=== PATIENT | male | born 1935 | race Caucasian/White ===

== ENCOUNTER 2017-05-18 13:37 | Emergency (ER) | payer MEDICARE ==
[~2017-05-18] VITALS: Ht 188 cm; Wt 117.0 kg
[~2017-05-18 13:37] MED LIST: AMIT25 PO; AMLO10 PO; ASPI325 PO; ASPI81EC PO; CEPH500 PO; Colace100 MG PO; ESOM20; FURO20 PO; GABA600 PO; HYDACE10B PO; HYDR-86 PO; LIDO5TP TD; METO50 PO; METO50ER PO; Micro-K10 MEQ PO; OLME20 PO; OMEP20ER PO; SERT100 PO
[2017-05-18 14:11] LABS: BASOPHILS ABSOLUTE AUTO 0.08 K/mm3 (0.00-0.23); BASOPHILS PERCENT AUTO 1 % (0-2); EOSINOPHILS ABSOLUTE AUTO 0.16 K/mm3 (0.00-0.68); EOSINOPHILS PERCENT AUTO 2 % (0-6); Hematocrit 42.8 % (37.0-53.0); Hemoglobin 13.8 g/dL (13.5-17.5); IMMATURE GRAN ABSOLUTE AUTO 0.03 K/mm3 (0.00-0.10); IMMATURE GRAN PERCENT AUTO 0 % (0-1); LYMPHOCYTES ABSOLUTE AUTO 1.35 K/mm3 (0.84-5.20); LYMPHOCYTES PERCENT AUTO 18 % (21-46); MONOCYTES ABSOLUTE AUTO 0.69 K/mm3 (0.16-1.47); MONOCYTES PERCENT AUTO 9 % (4-13); Mean Corpuscular HGB 29.6 pg (26.0-34.0); Mean Corpuscular HGB Conc 32.2 g/dL (31.5-36.5); Mean Corpuscular Volume 92 fL (80-100); Mean Platelet Volume 8.7 fL (9.1-12.4); NEUTROPHILS ABSOLUTE AUTO 5.19 K/mm3 (1.96-9.15); NEUTROPHILS PERCENT AUTO 69 % (41-73); Platelet Count 355 K/mm3 (150-400); RDW Standard Deviation 43.8 fL (35.1-46.3); Red Blood Cell Count 4.67 M/mm3 (4.30-5.90)
[2017-05-18 14:33] LABS: Alanine Aminotransfer (ALT/SGP 18 U/L (12-78); Albumin, Blood 3.3 g/dL (3.4-5.0); Albumin/Globulin Ratio 0.8 (0.8-1.8); Alk Phos 120 U/L (50-136); Anion Gap 7 mmol/L (6-16); Aspartate Aminotrans (AST/SGOT 12 U/L (12-37); Bilirubin, Total 0.6 mg/dL (0.1-1.0); Blood Urea Nitrogen 12 mg/dL (8-24); Bun/Creatinine Ratio 13.6 (12.0-20.0); CO2, Blood 28 mmol/L (21-32); Calcium, Blood 8.4 mg/dL (8.5-10.1); Chloride, Blood 105 mmol/L (98-108); Creatinine, Blood 0.88 mg/dL (0.60-1.20); Globulin, Blood 4.4 g/dL (2.2-4.0); Glomerular Filtration Rate >60 (60-); Glucose, Blood 126 mg/dL (70-99); Potassium, Blood 3.5 mmol/L (3.5-5.5); Sodium, Blood 140 mmol/L (136-145); Total Protein, Blood 7.7 g/dL (6.4-8.2)
[2017-05-18] MEDS ORDERED: CEPH500 PO (18:25)
== END 2017-05-18 18:58 | disposition home or self-care (01) ==
LOC: ER 13:37
PROVIDERS: Physician Assistant
DX: S82.65XA Nondisplaced fracture of lateral malleolus of left fibula, initial encounter for closed fracture (principal); L03.116 Cellulitis of left lower limb; I10 Essential (primary) hypertension; Z79.899 Other long term (current) drug therapy; Z79.82 Long term (current) use of aspirin; Z87.891 Personal history of nicotine dependence; W54.1XXA Struck by dog, initial encounter
CPT/HCPCS: 29515; 36415; 73610; 80053; 85025; 93971; 99284

== ENCOUNTER 2017-07-20 17:12 | Emergency (ER) | payer MEDICARE ==
[~2017-07-20] VITALS: Ht 190.5 cm; Wt 113.4 kg
[2017-07-20 17:24] LABS: BASOPHILS ABSOLUTE AUTO 0.07 K/mm3 (0.00-0.23); BASOPHILS PERCENT AUTO 1 % (0-2); EOSINOPHILS PERCENT AUTO 3 % (0-6); Hematocrit 45.1 % (37.0-53.0); Hemoglobin 14.5 g/dL (13.5-17.5); IMMATURE GRAN ABSOLUTE AUTO 0.03 K/mm3 (0.00-0.10); IMMATURE GRAN PERCENT AUTO 0 % (0-1); LYMPHOCYTES ABSOLUTE AUTO 1.46 K/mm3 (0.84-5.20); LYMPHOCYTES PERCENT AUTO 21 % (21-46); MONOCYTES PERCENT AUTO 9 % (4-13); Mean Corpuscular HGB 28.3 pg (26.0-34.0); Mean Corpuscular HGB Conc 32.2 g/dL (31.5-36.5); Mean Corpuscular Volume 88 fL (80-100); Mean Platelet Volume 8.9 fL (9.1-12.4); NEUTROPHILS ABSOLUTE AUTO 4.57 K/mm3 (1.96-9.15); NEUTROPHILS PERCENT AUTO 66 % (41-73); Platelet Count 282 K/mm3 (150-400); RDW Coefficient Variation 13.3 % (11.7-14.2); RDW Standard Deviation 43.3 fL (35.1-46.3); Red Blood Cell Count 5.12 M/mm3 (4.30-5.90); White Blood Cell Count 6.93 K/mm3 (4.00-11.30)
[2017-07-20 17:36] LABS: International Normalized Ratio 1.06
[2017-07-20 17:43] LABS: Alanine Aminotransfer (ALT/SGP 21 U/L (12-78); Albumin, Blood 3.5 g/dL (3.4-5.0); Albumin/Globulin Ratio 0.8 (0.8-1.8); Alk Phos 119 U/L (50-136); Anion Gap 6 mmol/L (6-16); Aspartate Aminotrans (AST/SGOT 14 U/L (12-37); Bilirubin, Total 0.5 mg/dL (0.1-1.0); Blood Urea Nitrogen 12 mg/dL (8-24); Bun/Creatinine Ratio 10.9 (12.0-20.0); CO2, Blood 28 mmol/L (21-32); Calcium, Blood 8.6 mg/dL (8.5-10.1); Chloride, Blood 105 mmol/L (98-108); Ethanol (Alcohol), Blood, Med 5 mg/dL; Globulin, Blood 4.2 g/dL (2.2-4.0); Glomerular Filtration Rate >60 (60-); Glucose, Blood 131 mg/dL (70-99); Potassium, Blood 3.5 mmol/L (3.5-5.5); Sodium, Blood 139 mmol/L (136-145); Total Protein, Blood 7.7 g/dL (6.4-8.2)
[2017-07-20 17:48] LABS: Source, Urine Clean Catch
[2017-07-20 17:51] LABS: Bilirubin, Urine Neg (Neg); Blood, Urine 1+ (Neg); Glucose Qualitative, Urine Neg (Neg); Ketones, Urine Neg (Neg); Leukocyte Esterase, Urine Neg (Neg); Nitrite, Urine Neg (Neg); Protein, Urine 2+ (Neg); Urobilinogen, Urine NORM (Normal)
[2017-07-20 17:59] LABS: Appearance, Urine Clear (Clear); Color, Urine Yellow (P-Yellow)
[2017-07-20 18:00] LABS: White Blood Cells, Urine 0-2 /hpf (0-5)
[2017-07-20 18:01] LABS: Bacteria Few /hpf; Squamous Epithelial Cells Not Seen /hpf (Few)
[2017-07-20 18:02] LABS: U Amphetamine Screen Not Detected; U Barbituate Screen Not Detected; U Benzodiazapine Screen Not Detected; U Buprenorphine Screen Not Detected; U Cannabinoids Screen Not Detected; U Cocaine Screen Not Detected; U Methadone Screen Not Detected; U Methamphetamine Screen Not Detected; U Opiates Screen Not Detected; U Oxycodone Screen Not Detected; U Phencyclidine Screen Not Detected; U Propoxyphene Screen Not Detected
[2017-07-20] MEDS ORDERED: SIMV10 PO (18:16)
[2017-07-20] MEDS ORDERED: DOXY100 (18:18)
[2017-07-20] MEDS ORDERED: AMIT10 PO (18:18)
== END 2017-07-20 22:16 ==
LOC: ER 17:12
PROVIDERS: Emergency Medicine
DX: I65.22 Occlusion and stenosis of left carotid artery (principal); R47.01 Aphasia; I10 Essential (primary) hypertension; Z79.899 Other long term (current) drug therapy; Z79.82 Long term (current) use of aspirin; Z87.891 Personal history of nicotine dependence
CPT/HCPCS: 70450; 70496; 70498; 71046; 80053; 81001; 85025; 85610; 85730; 93005; 93010; 96365; 99285; G0480; J1644; Q9967

== ENCOUNTER 2020-09-09 08:01 | Inpatient (IN) | payer MEDICARE ==
[~2020-09-09] VITALS: Ht 185.4 cm; Wt 111.5 kg
[~2020-09-09 08:01] MED LIST changes: -ASPI325 PO; +DOXY100; -FURO20 PO; -GABA600 PO; -METO50ER PO; -Micro-K10 MEQ PO; -SERT100 PO
[2020-09-09 08:31] LABS: BASOPHILS ABSOLUTE AUTO 0.08 K/mm3 (0.00-0.23); BASOPHILS PERCENT AUTO 1 % (0-2); EOSINOPHILS ABSOLUTE AUTO 0.15 K/mm3 (0.00-0.68); EOSINOPHILS PERCENT AUTO 2 % (0-6); Hematocrit 30.9 % (37.0-53.0); Hemoglobin 9.2 g/dL (13.5-17.5); IMMATURE GRAN ABSOLUTE AUTO 0.03 K/mm3 (0.00-0.10); IMMATURE GRAN PERCENT AUTO 0 % (0-1); LYMPHOCYTES ABSOLUTE AUTO 1.08 K/mm3 (0.84-5.20); LYMPHOCYTES PERCENT AUTO 16 % (21-46); MONOCYTES ABSOLUTE AUTO 0.76 K/mm3 (0.16-1.47); MONOCYTES PERCENT AUTO 11 % (4-13); Mean Corpuscular HGB 24.1 pg (26.0-34.0); Mean Corpuscular HGB Conc 29.8 g/dL (31.5-36.5); Mean Corpuscular Volume 81 fL (80-100); Mean Platelet Volume 8.9 fL (9.1-12.4); NEUTROPHILS ABSOLUTE AUTO 4.85 K/mm3 (1.96-9.15); NEUTROPHILS PERCENT AUTO 70 % (41-73); Platelet Count 290 K/mm3 (150-400); RDW Coefficient Variation 16.7 % (11.7-14.2); RDW Standard Deviation 48.1 fL (35.1-46.3); Red Blood Cell Count 3.82 M/mm3 (4.30-5.90); White Blood Cell Count 6.95 K/mm3 (4.00-11.30)
[2020-09-09 08:59] LABS: Alanine Aminotransfer (ALT/SGP 20 U/L (12-78); Albumin, Blood 2.7 g/dL (3.4-5.0); Albumin/Globulin Ratio 0.8 (0.8-1.8); Alk Phos 87 U/L (50-136); Anion Gap 5 mmol/L (6-16); Aspartate Aminotrans (AST/SGOT 21 U/L (12-37); Blood Urea Nitrogen 17 mg/dL (8-24); Bun/Creatinine Ratio 13.6 (12.0-20.0); CO2, Blood 25 mmol/L (21-32); Chloride, Blood 110 mmol/L (98-108); Creatinine, Blood 1.25 mg/dL (0.60-1.20); Globulin, Blood 3.3 g/dL (2.2-4.0); Glomerular Filtration Rate 58 (60-); Glucose, Blood 88 mg/dL (70-99); Potassium, Blood 3.7 mmol/L (3.5-5.5); Sodium, Blood 140 mmol/L (136-145); Troponin I <0.015 ng/mL (0.000-0.040)
[2020-09-09 09:21] LABS: Source, Urine Clean Catch
[2020-09-09 09:42] LABS: Appearance, Urine Clear (Clear); Bilirubin, Urine Neg (Neg); Blood, Urine Neg (Neg); Color, Urine Yellow (P-Yellow); Glucose Qualitative, Urine Neg (Neg); Ketones, Urine Neg (Neg); Leukocyte Esterase, Urine Neg (Neg); Nitrite, Urine Neg (Neg); Protein, Urine 1+ (Neg); Specific Gravity, Urine 1.015 (1.003-1.022); Urobilinogen, Urine 1+ (Normal)
[2020-09-09 11:24] LABS: Percent Saturation 6.6 % (20.0-50.0)
[2020-09-09] MEDS ORDERED: Micro-K10 MEQ PO (13:56)
[2020-09-09] MEDS ORDERED: FURO20 PO (13:56)
[2020-09-09] MEDS ORDERED: AMLODIPINE BESY10 MG PO (13:56)
[2020-09-09] MEDS ORDERED: FLUTICASONE-SA1 EAC9 INH (13:58)
[2020-09-09] MEDS ORDERED: METO50 PO (13:59)
[2020-09-09] MEDS ORDERED: GABA600 PO (13:59)
[2020-09-09] MEDS ORDERED: SERT100 PO (13:59)
[2020-09-09] MEDS ORDERED: SIMV10 PO (14:00)
[2020-09-09] MEDS ORDERED: PANTOPRAZOLE SO40 M2 PO (14:00)
[2020-09-09] MEDS ORDERED: ASPI325 PO (14:01)
[2020-09-09] MEDS ORDERED: Amitriptyline H10 MG PO (14:01)
--- NOTE | 2020-09-09 16:15 | NUR ---
SBAR REPORT FROM NISSA MCGEE RN
[2020-09-10 05:13] LABS: BASOPHILS ABSOLUTE AUTO 0.07 K/mm3 (0.00-0.23); BASOPHILS PERCENT AUTO 1 % (0-2); EOSINOPHILS ABSOLUTE AUTO 0.31 K/mm3 (0.00-0.68); EOSINOPHILS PERCENT AUTO 5 % (0-6); Hematocrit 33.2 % (37.0-53.0); IMMATURE GRAN ABSOLUTE AUTO 0.03 K/mm3 (0.00-0.10); IMMATURE GRAN PERCENT AUTO 0 % (0-1); LYMPHOCYTES PERCENT AUTO 16 % (21-46); MONOCYTES ABSOLUTE AUTO 0.71 K/mm3 (0.16-1.47); MONOCYTES PERCENT AUTO 11 % (4-13); Mean Corpuscular HGB 24.2 pg (26.0-34.0); Mean Corpuscular HGB Conc 30.1 g/dL (31.5-36.5); Mean Corpuscular Volume 80 fL (80-100); Mean Platelet Volume 9.3 fL (9.1-12.4); NEUTROPHILS ABSOLUTE AUTO 4.49 K/mm3 (1.96-9.15); NEUTROPHILS PERCENT AUTO 67 % (41-73); Platelet Count 311 K/mm3 (150-400); RDW Coefficient Variation 16.6 % (11.7-14.2); RDW Standard Deviation 47.1 fL (35.1-46.3); Red Blood Cell Count 4.14 M/mm3 (4.30-5.90); White Blood Cell Count 6.71 K/mm3 (4.00-11.30)
[2020-09-10 05:30] LABS: Alanine Aminotransfer (ALT/SGP 19 U/L (12-78); Albumin, Blood 2.7 g/dL (3.4-5.0); Albumin/Globulin Ratio 0.8 (0.8-1.8); Alk Phos 90 U/L (50-136); Anion Gap 6 mmol/L (6-16); Aspartate Aminotrans (AST/SGOT 20 U/L (12-37); Bilirubin, Total 1.6 mg/dL (0.1-1.0); Blood Urea Nitrogen 14 mg/dL (8-24); Bun/Creatinine Ratio 13.3 (12.0-20.0); CO2, Blood 29 mmol/L (21-32); Calcium, Blood 7.9 mg/dL (8.5-10.1); Chloride, Blood 103 mmol/L (98-108); Creatinine, Blood 1.05 mg/dL (0.60-1.20); Globulin, Blood 3.4 g/dL (2.2-4.0); Glomerular Filtration Rate >60 (60-); Glucose, Blood 82 mg/dL (70-99); Potassium, Blood 3.2 mmol/L (3.5-5.5); Sodium, Blood 138 mmol/L (136-145); Total Protein, Blood 6.1 g/dL (6.4-8.2)
[2020-09-10 13:09] LABS: Stool Occult Blood Guaiac 1 Neg (Neg)
[2020-09-10 15:45] LABS: Anion Gap 4 mmol/L (6-16); Blood Urea Nitrogen 14 mg/dL (8-24); Bun/Creatinine Ratio 12.6 (12.0-20.0); CO2, Blood 31 mmol/L (21-32); Calcium, Blood 8.3 mg/dL (8.5-10.1); Chloride, Blood 102 mmol/L (98-108); Creatinine, Blood 1.11 mg/dL (0.60-1.20); Glomerular Filtration Rate >60 (60-); Glucose, Blood 102 mg/dL (70-99); Potassium, Blood 3.9 mmol/L (3.5-5.5); Sodium, Blood 137 mmol/L (136-145)
--- NOTE | 2020-09-10 19:35 | NUR ---
DR called for BD protocol. PT has diskus at bedside discussed it with RT to obtain RX for PT while hospitalized & not use his own diskus here. Called hospitalist ROBERTO to ask for BD protocol. Reminded PT not to use own meds while here. order obtained. Weaned to room air & set up on pulse ox & bipap hospitals for [facility].
--- NOTE | 2020-09-11 05:39 | NUR ---
Gege elderly MAle lives alone, has new dx CHF PT in tele monitor afib or sr with PAC recieved BID IV lasix with large amts clear straw urine out. Gege with mild memory deficits has bipap for love & bioxx desats as low as 84% but recovers with cues. Uses high salt diet & says he is unaware of cardiac problems. He says he uses asa 325 mg for anticoagulant. 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 Not impulsive gait fairly steady. Denies acute pain.
[2020-09-11 08:39] LABS: Anion Gap 4 mmol/L (6-16); Blood Urea Nitrogen 14 mg/dL (8-24); Bun/Creatinine Ratio 13.2 (12.0-20.0); CO2, Blood 32 mmol/L (21-32); Calcium, Blood 8.3 mg/dL (8.5-10.1); Chloride, Blood 100 mmol/L (98-108); Creatinine, Blood 1.06 mg/dL (0.60-1.20); Glomerular Filtration Rate >60 (60-); Glucose, Blood 88 mg/dL (70-99); Potassium, Blood 3.6 mmol/L (3.5-5.5); Sodium, Blood 136 mmol/L (136-145)
[2020-09-11] MEDS ORDERED: FERSU300 PO (14:09)
[2020-09-11] MEDS ORDERED: VITAMIN B COMP0.4 MG PO (14:10)
[2020-09-11] MEDS ORDERED: TORSE20 PO (14:11)
[2020-09-11] MEDS ORDERED: MIRALAX17 GM PO (14:11)
--- NOTE | 2020-09-11 14:45 | NUR ---
PT DISCHARGED DC INSTRUCTIONS REVIEWED WITH PT, PT VERB UNDERSTANDING OF MEDS, DC INSTRUCTIONS, DIET, ACTIVITY, AND FOLLOW UP. PERSONAL BELONGINGS WITH PATIENT. PT DCD VIA WC TO PRIVATE VEHICLE
--- NOTE | 2020-09-11 15:27 | NUR ---
PT DISCHARGED THE PT VERBALIZED UNDERSTANDING OF DC INSTRUCTIONS, [facility] THE PTS PCP WAS CALLED A MESSAGE WAS LEFT TO SCHEDULE A FOLLOW UP APPOINTMENT, THE PT WAS TRANSFERED VIA WHEELCHAIR ACCOMPANIED BY THE SPECIALTY THERAPIST, PT APPEARED TO BE BREATHING EASILY ON RA AT THIS TIME
== END 2020-09-11 14:52 | disposition home health service (06) | DRG 291 ==
LOC: ER 08:01 → ERHOLD 10:33 → MEDS 16:31
PROVIDERS: Emergency Medicine; Family Medicine; ADMIT Internal Medicine
DX: I13.0 Hypertensive heart and chronic kidney disease with heart failure and stage 1 through stage 4 chronic kidney disease, or unspecified chronic kidney disease (principal); J96.01 Acute respiratory failure with hypoxia; N17.9 Acute kidney failure, unspecified; I50.9 Heart failure, unspecified; D64.9 Anemia, unspecified; E78.5 Hyperlipidemia, unspecified; G47.33 Obstructive sleep apnea (adult) (pediatric); I27.20 Pulmonary hypertension, unspecified; N18.2 Chronic kidney disease, stage 2 (mild); F32.9 Major depressive disorder, single episode, unspecified; Z86.73 Personal history of transient ischemic attack (TIA), and cerebral infarction without residual deficits; Z79.899 Other long term (current) drug therapy; Z90.49 Acquired absence of other specified parts of digestive tract; Z98.890 Other specified postprocedural states; Z79.82 Long term (current) use of aspirin; Z87.891 Personal history of nicotine dependence
CPT/HCPCS: 36415; 71045; 80048; 80053; 82270; 82607; 82728; 82746; 83540; 83550; 83735; 83880; 84443; 84484; 85025; 93005; 93010; 93306; 94640; 94660; 94761; 94762; 96374; 97116; 97162; 97166; 97530; 97535; 99285-25; A9270; J1650; J1940

== ENCOUNTER 2021-06-21 11:02 | Emergency (ER) | payer MEDICARE ==
[~2021-06-21] VITALS: Ht 185.4 cm; Wt 90.7 kg
[~2021-06-21 11:02] MED LIST changes: +AMLODIPINE BESY10 MG PO; +ASPI325 PO; +Amitriptyline H10 MG PO; +FERSU300 PO; +FLUTICASONE-SA1 EAC9 INH; +FURO20 PO; +GABA600 PO; +MIRALAX17 GM PO; +Micro-K10 MEQ PO; +PANTOPRAZOLE SO40 M2 PO; +SERT100 PO; +SIMV10 PO; +TORSE20 PO; +VITAMIN B COMP0.4 MG PO
[2021-06-21 12:12] LABS: BASOPHILS ABSOLUTE AUTO 0.06 K/mm3 (0.00-0.23); BASOPHILS PERCENT AUTO 1 % (0-2); EOSINOPHILS ABSOLUTE AUTO 0.19 K/mm3 (0.00-0.68); EOSINOPHILS PERCENT AUTO 2 % (0-6); Hematocrit 36.9 % (37.0-53.0); Hemoglobin 11.7 g/dL (13.5-17.5); IMMATURE GRAN ABSOLUTE AUTO 0.05 K/mm3 (0.00-0.10); IMMATURE GRAN PERCENT AUTO 1 % (0-1); LYMPHOCYTES ABSOLUTE AUTO 0.87 K/mm3 (0.84-5.20); LYMPHOCYTES PERCENT AUTO 10 % (21-46); MONOCYTES ABSOLUTE AUTO 0.89 K/mm3 (0.16-1.47); MONOCYTES PERCENT AUTO 11 % (4-13); Mean Corpuscular HGB 28.3 pg (26.0-34.0); Mean Corpuscular HGB Conc 31.7 g/dL (31.5-36.5); Mean Corpuscular Volume 89 fL (80-100); Mean Platelet Volume 9.5 fL (9.1-12.4); NEUTROPHILS ABSOLUTE AUTO 6.43 K/mm3 (1.96-9.15); NEUTROPHILS PERCENT AUTO 76 % (41-73); Platelet Count 332 K/mm3 (150-400); RDW Coefficient Variation 14.6 % (11.7-14.2); RDW Standard Deviation 46.8 fL (35.1-46.3); Red Blood Cell Count 4.14 M/mm3 (4.30-5.90); White Blood Cell Count 8.49 K/mm3 (4.00-11.30)
[2021-06-21 12:30] LABS: Alanine Aminotransfer (ALT/SGP 22 U/L (12-78); Albumin, Blood 2.8 g/dL (3.4-5.0); Albumin/Globulin Ratio 0.7 (0.8-1.8); Alk Phos 101 U/L (50-136); Anion Gap 4 mmol/L (6-16); Aspartate Aminotrans (AST/SGOT 14 U/L (12-37); Bilirubin, Total 1.2 mg/dL (0.1-1.0); Blood Urea Nitrogen 18 mg/dL (8-24); Bun/Creatinine Ratio 15.8 (12.0-20.0); CO2, Blood 28 mmol/L (21-32); Calcium, Blood 8.3 mg/dL (8.5-10.1); Chloride, Blood 106 mmol/L (98-108); Creatinine, Blood 1.14 mg/dL (0.60-1.20); Globulin, Blood 3.8 g/dL (2.2-4.0); Glomerular Filtration Rate >60 (60-); Glucose, Blood 97 mg/dL (70-99); Potassium, Blood 3.5 mmol/L (3.5-5.5); Sodium, Blood 138 mmol/L (136-145); Total Protein, Blood 6.6 g/dL (6.4-8.2)
[2021-06-21 12:42] LABS: Source, Urine Clean Catch
[2021-06-21 12:51] LABS: Blood, Urine Neg (Neg); Glucose Qualitative, Urine Neg (Neg); Ketones, Urine Neg (Neg); Leukocyte Esterase, Urine 1+ (Neg); Nitrite, Urine Neg (Neg); Protein, Urine 2+ (Neg); Urobilinogen, Urine 2+ (Normal)
[2021-06-21 12:57] LABS: Bilirubin, Urine 1+ (Neg)
[2021-06-21 12:58] LABS: Appearance, Urine Hazy (Clear); Color, Urine Yellow (P-Yellow)
[2021-06-21 12:59] LABS: Bacteria Rare /hpf; Red Blood Cells, Urine 0-2 /hpf (0-2); Squamous Epithelial Cells Few /hpf (Few); White Blood Cells, Urine 0-2 /hpf (0-5)
[2021-06-21] MEDS ORDERED: OXYC5 PO (14:19)
== END 2021-06-21 14:35 | disposition home or self-care (01) ==
LOC: ER 11:02
PROVIDERS: Emergency Medicine
DX: I48.91 Unspecified atrial fibrillation (principal); M48.56XA Collapsed vertebra, not elsewhere classified, lumbar region, initial encounter for fracture; I11.0 Hypertensive heart disease with heart failure; I50.9 Heart failure, unspecified; Z87.891 Personal history of nicotine dependence
CPT/HCPCS: 36415; 71046; 72100; 80053; 81001; 83880; 84484; 85025; 87086; 93005; 93010; 99285-25; A9270

== ENCOUNTER 2021-08-24 16:32 | Inpatient (IN) | payer MEDICARE ==
[~2021-08-24] VITALS: Ht 182.9 cm; Wt 102.1 kg
[~2021-08-24 16:32] MED LIST changes: +OXYC5 PO
[2021-08-24 18:22] LABS: BASOPHILS ABSOLUTE AUTO 0.09 K/mm3 (0.00-0.23); BASOPHILS PERCENT AUTO 1 % (0-2); EOSINOPHILS ABSOLUTE AUTO 0.16 K/mm3 (0.00-0.68); EOSINOPHILS PERCENT AUTO 2 % (0-6); Hematocrit 38.7 % (37.0-53.0); IMMATURE GRAN ABSOLUTE AUTO 0.03 K/mm3 (0.00-0.10); IMMATURE GRAN PERCENT AUTO 0 % (0-1); LYMPHOCYTES ABSOLUTE AUTO 1.59 K/mm3 (0.84-5.20); LYMPHOCYTES PERCENT AUTO 18 % (21-46); MONOCYTES ABSOLUTE AUTO 0.85 K/mm3 (0.16-1.47); MONOCYTES PERCENT AUTO 10 % (4-13); Mean Corpuscular HGB 27.7 pg (26.0-34.0); Mean Corpuscular Volume 89 fL (80-100); Mean Platelet Volume 9.3 fL (9.1-12.4); NEUTROPHILS ABSOLUTE AUTO 5.99 K/mm3 (1.96-9.15); NEUTROPHILS PERCENT AUTO 69 % (41-73); Platelet Count 347 K/mm3 (150-400); RDW Coefficient Variation 16.6 % (11.7-14.2); RDW Standard Deviation 54.5 fL (35.1-46.3); Red Blood Cell Count 4.33 M/mm3 (4.30-5.90); White Blood Cell Count 8.71 K/mm3 (4.00-11.30)
[2021-08-24 18:47] LABS: Albumin, Blood 2.9 g/dL (3.4-5.0); Albumin/Globulin Ratio 0.8 (0.8-1.8); Bilirubin, Total 0.6 mg/dL (0.1-1.0); Bun/Creatinine Ratio 14.3 (12.0-20.0); Calcium, Blood 8.3 mg/dL (8.5-10.1); Creatinine, Blood 1.19 mg/dL (0.60-1.20); Globulin, Blood 3.8 g/dL (2.2-4.0); Potassium, Blood 3.5 mmol/L (3.5-5.5); Total Protein, Blood 6.7 g/dL (6.4-8.2)
[2021-08-25] MEDS ORDERED: IBU800 M1 PO (01:00)
[2021-08-25] MEDS ORDERED: Norco 5-325 Ta1 EACH PO (01:02)
[2021-08-25 02:25] LABS: BASOPHILS ABSOLUTE AUTO 0.07 K/mm3 (0.00-0.23); BASOPHILS PERCENT AUTO 1 % (0-2); EOSINOPHILS PERCENT AUTO 4 % (0-6); Hematocrit 38.9 % (37.0-53.0); Hemoglobin 12.1 g/dL (13.5-17.5); IMMATURE GRAN ABSOLUTE AUTO 0.01 K/mm3 (0.00-0.10); IMMATURE GRAN PERCENT AUTO 0 % (0-1); LYMPHOCYTES ABSOLUTE AUTO 1.77 K/mm3 (0.84-5.20); LYMPHOCYTES PERCENT AUTO 22 % (21-46); MONOCYTES ABSOLUTE AUTO 0.83 K/mm3 (0.16-1.47); MONOCYTES PERCENT AUTO 11 % (4-13); Mean Corpuscular HGB 27.4 pg (26.0-34.0); Mean Corpuscular HGB Conc 31.1 g/dL (31.5-36.5); Mean Corpuscular Volume 88 fL (80-100); NEUTROPHILS ABSOLUTE AUTO 4.95 K/mm3 (1.96-9.15); NEUTROPHILS PERCENT AUTO 62 % (41-73); Platelet Count 325 K/mm3 (150-400); RDW Coefficient Variation 16.4 % (11.7-14.2); RDW Standard Deviation 53.5 fL (35.1-46.3); Red Blood Cell Count 4.41 M/mm3 (4.30-5.90); White Blood Cell Count 7.93 K/mm3 (4.00-11.30)
[2021-08-25 02:43] LABS: Albumin, Blood 2.9 g/dL (3.4-5.0); Albumin/Globulin Ratio 0.8 (0.8-1.8); Bilirubin, Total 0.7 mg/dL (0.1-1.0); Bun/Creatinine Ratio 14.2 (12.0-20.0); Calcium, Blood 8.3 mg/dL (8.5-10.1); Creatinine, Blood 1.13 mg/dL (0.60-1.20); Globulin, Blood 3.6 g/dL (2.2-4.0); Potassium, Blood 3.2 mmol/L (3.5-5.5); Total Protein, Blood 6.5 g/dL (6.4-8.2)
[2021-08-25 02:44] LABS: CPK Creatine Kinase 44 U/L (39-308)
[2021-08-25 10:21] LABS: CPK Creatine Kinase 38 U/L (39-308)
[2021-08-26 12:53] LABS: Bun/Creatinine Ratio 12.3 (12.0-20.0); Calcium, Blood 8.1 mg/dL (8.5-10.1); Creatinine, Blood 0.98 mg/dL (0.60-1.20); Potassium, Blood 3.6 mmol/L (3.5-5.5)
[2021-08-27] MEDS ORDERED: AIRDUO RESPICL1 EAC4 INH (13:42)
== END 2021-08-27 16:05 | disposition home health service (06) | DRG 291 ==
LOC: ER 16:32 → MEDS 22:19 → ERHOLD 22:19 → MEDS 08-25 01:54
PROVIDERS: Internal Medicine; Physician Assistant; ADMIT Internal Medicine
DX: I13.0 Hypertensive heart and chronic kidney disease with heart failure and stage 1 through stage 4 chronic kidney disease, or unspecified chronic kidney disease (principal); I50.33 Acute on chronic diastolic (congestive) heart failure; I48.91 Unspecified atrial fibrillation; E78.5 Hyperlipidemia, unspecified; G47.33 Obstructive sleep apnea (adult) (pediatric); N18.30 Chronic kidney disease, stage 3 unspecified; F32.A Depression, unspecified; Z90.49 Acquired absence of other specified parts of digestive tract; Z86.73 Personal history of transient ischemic attack (TIA), and cerebral infarction without residual deficits; Z98.890 Other specified postprocedural states; Z87.891 Personal history of nicotine dependence; Z79.82 Long term (current) use of aspirin; Z79.899 Other long term (current) drug therapy
CPT/HCPCS: 36415; 71046; 80048; 80053; 82550; 83690; 83880; 84484; 85025; 93005; 93010; 93306; 94640; 94760; 94761; 96372; 96374; 96375; 97110; 97116; 97162; 99285-25; A9270; J1650; J1940; J3480

== ENCOUNTER 2021-09-07 00:31 | Inpatient (IN) | payer MEDICARE ==
[~2021-09-07] VITALS: Ht 185.4 cm; Wt 105.5 kg
[~2021-09-07 00:31] MED LIST changes: +AIRDUO RESPICL1 EAC4 INH; +IBU800 M1 PO; +Norco 5-325 Ta1 EACH PO
[2021-09-07 00:48] LABS: BASOPHILS ABSOLUTE AUTO 0.05 K/mm3 (0.00-0.23); BASOPHILS PERCENT AUTO 0 % (0-2); EOSINOPHILS ABSOLUTE AUTO 0.01 K/mm3 (0.00-0.68); EOSINOPHILS PERCENT AUTO 0 % (0-6); Hematocrit 35.1 % (37.0-53.0); IMMATURE GRAN ABSOLUTE AUTO 0.08 K/mm3 (0.00-0.10); IMMATURE GRAN PERCENT AUTO 1 % (0-1); LYMPHOCYTES ABSOLUTE AUTO 0.63 K/mm3 (0.84-5.20); LYMPHOCYTES PERCENT AUTO 5 % (21-46); MONOCYTES ABSOLUTE AUTO 1.02 K/mm3 (0.16-1.47); MONOCYTES PERCENT AUTO 8 % (4-13); Mean Corpuscular HGB 27.7 pg (26.0-34.0); Mean Corpuscular HGB Conc 31.3 g/dL (31.5-36.5); Mean Corpuscular Volume 88 fL (80-100); NEUTROPHILS ABSOLUTE AUTO 11.07 K/mm3 (1.96-9.15); NEUTROPHILS PERCENT AUTO 86 % (41-73); Platelet Count 286 K/mm3 (150-400); RDW Coefficient Variation 15.6 % (11.7-14.2); RDW Standard Deviation 51.2 fL (35.1-46.3); Red Blood Cell Count 3.97 M/mm3 (4.30-5.90); White Blood Cell Count 12.86 K/mm3 (4.00-11.30)
[2021-09-07 01:00] LABS: Albumin, Blood 2.9 g/dL (3.4-5.0); Albumin/Globulin Ratio 0.9 (0.8-1.8); Bilirubin, Total 1.3 mg/dL (0.1-1.0); Bun/Creatinine Ratio 14.9 (12.0-20.0); Calcium, Blood 8.4 mg/dL (8.5-10.1); Creatinine, Blood 1.61 mg/dL (0.60-1.20); Globulin, Blood 3.4 g/dL (2.2-4.0); Potassium, Blood 4.2 mmol/L (3.5-5.5); Total Protein, Blood 6.3 g/dL (6.4-8.2)
[2021-09-07 01:10] LABS: Magnesium, Blood 2.3 mg/dL (1.6-2.4)
--- NOTE | 2021-09-07 09:40 | NUR ---
ASSUMED CARE: PT ARRIVED FROM ED WITH 3L O2 IN PLACE. PLACED ON TELE, NOTED TO BE IN AFIB WITH HR 1TEENS TO 130S WITH ACTIVITY. PICTURES TAKEN OF VARIOUS SKIN TEARS AND SCATTERED BRUISING. SKIN TEAR TO BACK OF HEAD SOAKING SO THAT SKIN FOLD CAN BE REPLACED. PT HARD OF HEARING BUT DENIES NEEDS AT THIS TIME.
[2021-09-07] MEDS ORDERED: AMLO10 PO (11:23)
--- NOTE | 2021-09-07 11:54 | NUR ---
CALL TO PT'S DAUGHTER TO GIVE HER UPDATE ON HIS STATUS. SHE REPORTS THAT HE HAS BEEN FALLING AT HOME AND THAT HE LIVES ALONE. SHE LIVES IN [place] AND CALLS FREQUENTLY AND COMES TO VISIT HIM EVERY FEW WEEKS. DAUGHTER'S NUMBER WRITTEN ON CHART AND ON WHITE BOARD IN ROOM.
[2021-09-07 12:30] LABS: Bun/Creatinine Ratio 16.3 (12.0-20.0); Calcium, Blood 8.6 mg/dL (8.5-10.1); Creatinine, Blood 1.41 mg/dL (0.60-1.20); Potassium, Blood 3.6 mmol/L (3.5-5.5)
--- NOTE | 2021-09-07 14:31 | NUR ---
PT'S LEFT ELBOW NOTED TO BE OOZING DESPITE THE MEPITEL DRESSING IN PLACE. HEEL PROTECTOR PLACED ON ELBOW WELL. LINENS CHANGED. PT ON BSC AT THIS TIME. NO ACUTE NEEDS.
--- NOTE | 2021-09-07 17:46 | NUR ---
SHIFT SUMMARY: PT ED ADMIT TODAY. UP TO COMMODE MULTIPLE TIMES. AFIB ON TELE IN 1TEENS TO 130S. TACHYCARDIC WITH EXERTION. MULTIPLE SKIN TEARS AND BRUISING T/O DUE TO MULTIPLE FALLS AT HOME. CALL LIGHT IN REACH, BED ALARM ON. EATING DINNER, DENIES FURTHER NEEDS AT THIS TIME.
--- NOTE | 2021-09-08 00:12 | NUR ---
CALLED DR GONGORA REAGARDING PT'S GABAPENTIN AND HYDROCODONE ON RX REC NOT BEING IN EMAR AND PT IN PAIN AND UNABLE TO SLEEP. DR GONGORA APPROVED TO ADD TO EMAR PER RX REC.
[2021-09-08 04:43] LABS: BASOPHILS ABSOLUTE AUTO 0.05 K/mm3 (0.00-0.23); BASOPHILS PERCENT AUTO 1 % (0-2); EOSINOPHILS ABSOLUTE AUTO 0.24 K/mm3 (0.00-0.68); EOSINOPHILS PERCENT AUTO 3 % (0-6); Hematocrit 33.5 % (37.0-53.0); Hemoglobin 10.4 g/dL (13.5-17.5); IMMATURE GRAN ABSOLUTE AUTO 0.03 K/mm3 (0.00-0.10); IMMATURE GRAN PERCENT AUTO 0 % (0-1); LYMPHOCYTES ABSOLUTE AUTO 0.93 K/mm3 (0.84-5.20); LYMPHOCYTES PERCENT AUTO 12 % (21-46); MONOCYTES ABSOLUTE AUTO 0.85 K/mm3 (0.16-1.47); MONOCYTES PERCENT AUTO 11 % (4-13); Mean Corpuscular HGB 27.4 pg (26.0-34.0); Mean Corpuscular Volume 88 fL (80-100); Mean Platelet Volume 9.8 fL (9.1-12.4); NEUTROPHILS ABSOLUTE AUTO 5.78 K/mm3 (1.96-9.15); NEUTROPHILS PERCENT AUTO 73 % (41-73); Platelet Count 284 K/mm3 (150-400); RDW Coefficient Variation 15.9 % (11.7-14.2); RDW Standard Deviation 50.7 fL (35.1-46.3); White Blood Cell Count 7.88 K/mm3 (4.00-11.30)
[2021-09-08 05:04] LABS: Albumin, Blood 2.5 g/dL (3.4-5.0); Anion Gap 5 mmol/L (6-16); Blood Urea Nitrogen 27 mg/dL (8-24); Bun/Creatinine Ratio 18.6 (12.0-20.0); CO2, Blood 33 mmol/L (21-32); Calcium, Blood 8.1 mg/dL (8.5-10.1); Chloride, Blood 101 mmol/L (98-108); Creatinine, Blood 1.45 mg/dL (0.60-1.20); Glomerular Filtration Rate 47 (60-); Glucose, Blood 99 mg/dL (70-99); Phosphorus, Blood 3.4 mg/dL (2.5-4.9); Potassium, Blood 3.5 mmol/L (3.5-5.5); Sodium, Blood 139 mmol/L (136-145)
--- NOTE | 2021-09-08 06:37 | NUR ---
SHIFT SUMMARY PT IS ALERT AND ORIENTEDX4. HE IS VERY [place]. THERE HAVE BEEN NO ACUTE CHANGES T/O THE NIGHT. PT DENIES ANY CARDIAC RELATED CHEST PAIN OR PRESSURE. HE REPORTS FEELING RIGHT RIB PAIN. HE REPORTED SEVERE LEG PAIN LAST NIGHT 12/29 AND HOME PAIN MEDS WERE ADDED TO EMAR. HE SLEPT WELL AFTERWARDS. HE IS USING THE URINAL IN BED. HE DID GET UP TO HAVE A BM WITH 1 ASSIST AND FWW, HE REPORTED FEELING DIZZY AND SOB. CALL LIGHT IS WITHIN REACH AND BED ALARM IS ACTIVE.
--- NOTE | 2021-09-08 15:08 | NUR ---
UPDATE AROUND 1140, SHILOH MARTINEZ WAS HEARD CALLING FOR HELP IN PT ROOM. THIS RN ALONG WITH CONSTRUCTION ADMINISTRATIVE ASSISTANT AND ANOTHER RN ENTERED ROOM TO FIND EMPLOYMENT CASE MANAGER HOLDING PT TORSO UP. PT WAS SITTING ON EDGE OF BED AND WAS LETHARGIC. EMPLOYMENT CASE MANAGER REPORTED THAT " PT BEGAN TO STAND FOR BEDSIDE COMMODE, PT JUST PASSED OUT." PT WAS PUT BACK INTO SUPINE POSITION IN BED WITH MAXIMUM ASSISTANCE OF 3 STAFF MEMBERS. BP WAS SOFT BUT STABLE AND HR WAS IN THE 100'S. PT WAS PUT IN SUPINE POSITION, IT WAS NOTICED THAT PT HAD ELIMINATED ON EDGE OF BED WHERE HE WAS SITTING. PT STATED THE HE "REMEMBERED SITTING AT EDGE OF BED" BUT "DID NOT REMEMBER PASSING OUT OR BEING PUT BACK INTO BED." DR NOTIFIED BY CONSTRUCTION ADMINISTRATIVE ASSISTANT.
--- NOTE | 2021-09-08 17:33 | NUR ---
SHIFT SUMMARY PT A/O X4 AND COOPERATIVE OF CARE. PT BP'S SOFT DURING SHIFT, DR NOTIFIED. DR ORDERED LR FLUIDS TO BE GIVEN AND TO HOLD BP MEDS AND DIURETICS. PT HAD SYCOPAL EPISODE DURING SHIFT, SEE PREVIOUS NOTES. ADDITIONAL LR ORDERED AFTER SYCOPAL EPISODE. PT REMAINED IN A-FIB WITH A A CONTROLED RATE. OTHER VSS THROUGHOUT SHIFT WITH O2 SATS >92% ON 3L. PT REQUESTING TO USE BEDSIDE COMMODE AFTER SYCOPAL EPISODE, PT INSTRUCTED TO USE A BED MUÑOZ, PT AGREED. PT REPORTED PAIN OF RIGHT SIDE RIBS, TREATED PER EMAR. PT ABLE TO ASSIST IN ROLLING FOR BED MUÑOZ AND BED CHANGE, TOLERATED FAIR. NO REPORT OF CHEST PAIN/PRESSURE THROUGHOUT SHIFT.
[2021-09-09 04:09] LABS: Hematocrit 33.7 % (37.0-53.0); Hemoglobin 10.3 g/dL (13.5-17.5)
[2021-09-09 04:25] LABS: Albumin, Blood 2.4 g/dL (3.4-5.0); Anion Gap 4 mmol/L (6-16); Blood Urea Nitrogen 26 mg/dL (8-24); Bun/Creatinine Ratio 20.5 (12.0-20.0); CO2, Blood 34 mmol/L (21-32); Calcium, Blood 8.2 mg/dL (8.5-10.1); Chloride, Blood 100 mmol/L (98-108); Creatinine, Blood 1.27 mg/dL (0.60-1.20); Glomerular Filtration Rate 55 (60-); Glucose, Blood 99 mg/dL (70-99); Phosphorus, Blood 3.3 mg/dL (2.5-4.9); Potassium, Blood 3.6 mmol/L (3.5-5.5); Sodium, Blood 138 mmol/L (136-145)
[2021-09-09 07:03] LABS: Source, Urine Straight Cath
[2021-09-09 07:23] LABS: Bilirubin, Urine Neg (Neg); Blood, Urine Neg (Neg); Glucose Qualitative, Urine Neg (Neg); Ketones, Urine Neg (Neg); Leukocyte Esterase, Urine Neg (Neg); Nitrite, Urine Neg (Neg); Protein, Urine 2+ (Neg); Specific Gravity, Urine 1.015 (1.003-1.022); Urobilinogen, Urine 1+ (Normal)
--- NOTE | 2021-09-09 07:32 | NUR ---
SHIFT SUMMARY PT IS ALERT AND ORIENTED. THERE HAVE BEEN NO ACUTE CHANGES T/O THE NIGHT. VITALS ARE STABLE AND PT IS ON 2L NC WITH SATS ABOVE 92%. PT HAS BEEN BEDREST DUE TO SYNCOPAL EPISODE DURING PREVIOUS DAY SHIFT. HE IS ABLE TO USE URINAL IN BED. HE REPORTS PAIN IN HIS RIGHT RIBS 9/10. CALL LIGHT IS WITHIN REACH. BED ALARM IS ACTIVE.
--- NOTE | 2021-09-09 08:00 | NUR ---
AM ASSESSMET: Pt resting in bed. Denies feeling dizzy, SOB, Chest pain. States that he is having 9/10 pain in his R ribs. Will treat per orders. Pt has multiple skin tears and bruises throughout. Pitting edema in BLE. HR irregular, BT positive. LS diminished in bases. Pulses palp. Pt VSS. Will continue to monitor. Call light in reach.
[2021-09-09 08:09] LABS: Appearance, Urine Hazy (Clear); Color, Urine Yellow (P-Yellow)
[2021-09-09 08:18] LABS: Bacteria Mod /hpf; Red Blood Cells, Urine 0-2 /hpf (0-2); Squamous Epithelial Cells Rare /hpf (Few); White Blood Cells, Urine 0-2 /hpf (0-5)
--- NOTE | 2021-09-09 11:11 | NUR ---
UPDATE: Pt was working with PT when he started to feel faint. PT able to get Pt. quickly back to bed where he breifly passed out but came to within a few seconds. No changes on Tele but BP hypotesive directly after incedent and biox was reading low (60's but with poor pleath) during the incedent. BP improved after and in now over 100 systolically. BIox now 100%. Pt c/o pain in his ribs but no other issues. Will notify physician of incedent.
--- NOTE | 2021-09-09 18:07 | NUR ---
Shift Summary: Pt sitting up in bed. Denies needs at this time. Pt had no further syncopal episodes since the episode at 1100. Orthostatic BP taken this shift and physician notified of results. Pt has c/o pain in R side ribs and was treated per orders. Pt very pleasant and cooperative. Stable at this time. Will report to night RN.
--- NOTE | 2021-09-09 19:30 | NUR ---
PATIENT AWAKE, [place], WATCHING TV. C/O SHARP PAIN TO RIGHT SIDE INCREASING WITH DEEP BREATH. NORCO PO GIVEN. MONITOR CONTINUES TO SHOW AFIB. 4L/NC IN PLACE WITH BIOX 98%. MULTIPLE DRESSINGS TO VARIOUS SKIN TEARS. NEW SKIN TEAR TO RIGHT UPPER ARM CLEANSED AND COVERED WITH FOAM DRESSING. PATIENT VERBALIZED UNDERSTANDING OF NEED FOR BED REST AT THIS TIME DUE TO SYNCOPE TODAY, AND ADJUSTING MEDICATIONS.
[2021-09-10 04:25] LABS: Hemoglobin 10.8 g/dL (13.5-17.5)
[2021-09-10 04:52] LABS: Albumin, Blood 2.2 g/dL (3.4-5.0); Anion Gap 6 mmol/L (6-16); Blood Urea Nitrogen 20 mg/dL (8-24); Bun/Creatinine Ratio 20.6 (12.0-20.0); CO2, Blood 32 mmol/L (21-32); Calcium, Blood 8.2 mg/dL (8.5-10.1); Chloride, Blood 100 mmol/L (98-108); Creatinine, Blood 0.97 mg/dL (0.60-1.20); Glomerular Filtration Rate 76 (60-); Glucose, Blood 88 mg/dL (70-99); Phosphorus, Blood 2.7 mg/dL (2.5-4.9); Potassium, Blood 3.8 mmol/L (3.5-5.5); Sodium, Blood 138 mmol/L (136-145)
--- NOTE | 2021-09-10 05:39 | NUR ---
SUMMARY PATIENT SLEEPING OFF AND ON T/O NIGHT WITH 4L/NC IN PLACE. AWAKENS EASILY TO SLIGHT STIMULI. MONITOR CONTINUES TO SHOW AFIB WITH RATE 70-80'S. MULTIPLE DRESSINGS CD&I TO SKIN TEARS. PATIENT CONTINUES TO HAVE PAIN TO RIGHT RIB AREA INCREASING IN PAIN WITH REPOSITIONING, AND WITH DEEP BREATH OR COUGH.
--- NOTE | 2021-09-10 08:06 | NUR ---
Pt is alert, oriented and conversant this morning. Cheerful, but states that he is having some pain on the right lower rib cage, laterally. STates no pain when he is just lying in bed, but it is tender to touch and when he coughs, which he says is not that often. Orthostatic vital signs done this morning, lying to standing. No significant difference. noted. Pt is sitting on side of bed now, eating breakfast, call light at his side.
--- NOTE | 2021-09-10 09:01 | NUR ---
Binder placed on pt to help manage his pain on the right side, ribs area. Also was given a [place] tablet in anticipation of working with therapists this morning. Pt reports that PT/OT work has been painful for him. He also has chronic back pain. He was able to sit on the side of the bed for breakfast and medication administration. Now lying in bed, IVPB Azithromycin infusing; pt is watching TV.
--- NOTE | 2021-09-10 09:11 | NUR ---
The pt lives alone, and has had falls at home, possibly due to syncopal episodes.
--- NOTE | 2021-09-10 11:51 | NUR ---
Sitting up in chair, states no pain except on his "butt" from sitting in the chair. Given a pillow to sit on and he states that it feels good now.
--- NOTE | 2021-09-10 13:47 | NUR ---
Pt appears to be napping, HOB elevated 25 degrees, respirations even and unlabored.
--- NOTE | 2021-09-11 05:11 | NUR ---
SHIFT SUMMARY PT ALERT AND ORIENTED X4. ON 2L NC SATS OVER 92%. BP STABLE. HR AFIB 80-110'S. AFEBRILE. C/O 10/10 RIB PAIN, RELIEVED PER EMAR. ABDOMINAL BINDER IN PLACE SINCE 9PM. SLEEPING MOST OF NIGHT. IN BED ASLEEP WITH CALL ALARM AT SIDE, WILL CONTINUE TO MONITOR UNTIL REPORT GIVEN TO DAYSHIFT RN
--- NOTE | 2021-09-11 07:21 | NUR ---
Pt is awake, watching TV. Pleasantly conversant and asking for a cup of coffee. BEdside report received from TATIANA Reed.
--- NOTE | 2021-09-11 07:22 | NUR ---
Mepilex dressing left upper arm and medial aspect of left forearm noted soiled. Removed and noted two large skin tears underneath, with serous drainage. Xeroform petrolatum dressing applied to tears, covered with suprabsorbent mepitel and secured with MT spandage netting.
--- NOTE | 2021-09-11 08:37 | NUR ---
Dr.s Vergara and Dillon here rounding on pt. Bill states he is not having terrible pain, but in anticipation of ADLs and work with therapist he would like to have a pain pill. Plan of care discussed.
--- NOTE | 2021-09-11 10:57 | NUR ---
Attempted to return daughter Jagdish's phone call. Voicemail message left.
--- NOTE | 2021-09-11 16:36 | NUR ---
Call to pt's daughter Jagdish to inform her that the pt will be moved to room 359 this evening. The pt was also informed of this.
--- NOTE | 2021-09-11 18:24 | NUR ---
TRANSFER PATIENT TRANSFERRED FROM PCU AT 1820. PATIENT SETTLED INTO ROOM. PATIENT IS A SBA WITH A FWW. PATIENT HAS MANY ABRASIONS/BRUISES FROM FALLS AT HOME. ALL DRESSINGS ARE C/D/I. PATIENT IS VERY [place]. PATIENT IS ON 3L VIA N/C. PATIENT HAD ALREADY EATEN DINNER PRIOR TO ARRIVAL. PATIENT IS PLEASANT AND COOPERATIVE WITH CARE.
[2021-09-12 04:38] LABS: Hematocrit 36.2 % (37.0-53.0)
--- NOTE | 2021-09-12 05:10 | NUR ---
SHIFT SUMMARY ASSUMED CARE OF PT AROUND 1900. PT IS A/OX4. HEART SOUNDS IRREGULAR, LUNG SOUNDS CLEAR. TELE SHOWS AFIB. PT HAD NO ACUTE EVENTS DURING THE NIGHT. C/O PAIN IN HIS RIBS, BINDER ON. PT HAD EPISODE OF INCONTIENENCE BUT FELL BACK ASLEEP. PT EAGER TO GO HOME.
--- NOTE | 2021-09-12 16:50 | NUR ---
DAY SHIFT SUMMARY 86 YR OLD MALE PT WITH ACUTE ON CHRONIC DIASTOLIC HEART FAILURE. PT ON TELE WITH AFIB WITH PVC'S AT 59. PT ON 2L O2 AT REST AND 4L O2 WITH ACTIVITY. TAKES MEDS WHOLE, HARD OF HEARING. WAITING SNF PLACEMENT. FRACTURE TO RIBS FROM FALL, RIB BINDER IN PLACE, BANDAGE TO BACK OF HEAD, SCATTERED BRUISING THROUGHOUT. CALL LIGHT WITHIN REACH AND ABLE TO CALL APPROPRIATE. ABLE TO AMBULATE WITH A STANDBY ASSIST AND WALKER TO BATHROOM.
[2021-09-13 05:17] LABS: Digoxin (Lanoxin) 2.08 ug/mL (0.80-2.00)
--- NOTE | 2021-09-13 05:38 | NUR ---
PT IS A/O, ASSIST TO RESTROOM WITH FWW, USES URINAL. MEDICATED FOR RIB PAIN THIS SHIFT FROM FROM FX. [place]. PT WEARS RIB BINDER, 2LO2 VIA N/C. TELE MONITOR IN AFIB.
--- NOTE | 2021-09-13 17:09 | NUR ---
SHIFT SUMMARY PT A&O X 4. VSS. PT DENIES NEED FOR PAIN MEDICATIONS. WILL WEAR RIB BINDER WHEN UP & AMBULATING OR TRANSFERRING TO CHAIR. OTHERWISE HE LOOSENS IT WHEN LYING IN BED OR JUST SITTING IN CHAIR. PLAN IS FOR SNF UPON DC, LIKELY WEDNESDAY OR WEDNESDAY.
[2021-09-14 05:41] LABS: Anion Gap 5 mmol/L (6-16); Blood Urea Nitrogen 6 mg/dL (8-24); Bun/Creatinine Ratio 8.8 (12.0-20.0); CO2, Blood 31 mmol/L (21-32); Calcium, Blood 8.7 mg/dL (8.5-10.1); Chloride, Blood 103 mmol/L (98-108); Creatinine, Blood 0.68 mg/dL (0.60-1.20); Digoxin (Lanoxin) 1.87 ug/mL (0.80-2.00); Glomerular Filtration Rate 91 (60-); Glucose, Blood 84 mg/dL (70-99); Potassium, Blood 4.5 mmol/L (3.5-5.5); Sodium, Blood 139 mmol/L (136-145)
--- NOTE | 2021-09-14 05:41 | NUR ---
PT IS [place] BUT A/O 1 ASSIST TO RESTROOM WITH FWW, MEDICATED THIS SHIFT FOR RIB PAIN FROM FX. HX OF FALL AT HOME. EDEMA TO LOWER LEGS AND FEET. TELE MONITOR IN AFIB. 2L 02 VIA N/C.
--- NOTE | 2021-09-14 17:11 | NUR ---
SHIFT SUMMARY PT A&O X 4. VSS. TELE SHOWS A. FIB. PT HAS DENIED THE NEED FOR PAIN MEDICATION. APPEARS COMFORTABLE EITHER IN BED OR IN THE CHAIR AT BEDSIDE WATCHING TV. HAS HAD A VISITOR MUCH OF THE SHIFT. PT IS EXTREMELY [place]. USES THE URINAL INDEPENDENTLY AND IS 1 PERSON STDBY ASSIST W/WALKER FOR RESTROOM USE. PLAN IS DC TO SNF TOMORROW OR WEDNESDAY.
--- NOTE | 2021-09-15 05:01 | NUR ---
PT IS A/O, TEJON, TELE MONITOR IN AFIB. STANDBY TO RESTROOM WITH FWW. PT MEDICATED FOR RIB FX PAIN THIS SHIFT. FALL HX.
[2021-09-15 05:11] LABS: Bun/Creatinine Ratio 11.7 (12.0-20.0); Calcium, Blood 8.5 mg/dL (8.5-10.1); Creatinine, Blood 0.69 mg/dL (0.60-1.20); Potassium, Blood 4.4 mmol/L (3.5-5.5)
[2021-09-15 11:47] LABS: SARS-Cov-2 (COVID-19) PCR, MMC NEGATIVE (NEGATIVE)
--- NOTE | 2021-09-15 13:01 | NUR ---
[facility] HERE TO PICK PT UP VIA W/C. TRANSFERRED TO [facility] VIA W/C. REPORT CALLED TO MARIAM. BELONGINGS WITH PT ON DISCHARGE.
[2021-09-15] MEDS ORDERED: DIGOX125 MC1 PO (14:36)
[2021-09-15] MEDS ORDERED: DOCU100 PO (14:36)
[2021-09-15] MEDS ORDERED: MIRALAX11910 PO (14:36)
== END 2021-09-15 12:26 | disposition home or self-care (01) | DRG 871 ==
LOC: ER 00:31 → ERHOLD 03:44 → PCU 09:37 → MEDS 09-11 18:19
PROVIDERS: Family Medicine; Hospitalist; Student in an Organized Health Care Education/Training Program; ADMIT Internal Medicine
DX: A41.9 Sepsis, unspecified organism (principal); J96.21 Acute and chronic respiratory failure with hypoxia; I50.33 Acute on chronic diastolic (congestive) heart failure; J18.9 Pneumonia, unspecified organism; S22.41XA Multiple fractures of ribs, right side, initial encounter for closed fracture; N17.9 Acute kidney failure, unspecified; J90 Pleural effusion, not elsewhere classified; R65.20 Severe sepsis without septic shock; I11.0 Hypertensive heart disease with heart failure; F32.A Depression, unspecified; I95.9 Hypotension, unspecified; G47.33 Obstructive sleep apnea (adult) (pediatric); I48.91 Unspecified atrial fibrillation; D72.829 Elevated white blood cell count, unspecified; W19.XXXA Unspecified fall, initial encounter; I65.29 Occlusion and stenosis of unspecified carotid artery; Z20.822 Contact with and (suspected) exposure to COVID-19; Z98.890 Other specified postprocedural states; Z90.49 Acquired absence of other specified parts of digestive tract; Z87.891 Personal history of nicotine dependence; Z79.899 Other long term (current) drug therapy; Z79.82 Long term (current) use of aspirin; Z79.891 Long term (current) use of opiate analgesic
CPT/HCPCS: 36415; 70450; 71045; 73070; 80048; 80053; 80069; 80162; 81001; 83605; 83735; 83880; 84145; 84443; 84484; 85014; 85018; 85025; 87040; 93005; 93010; 94640; 94664; 94760; 94762; 96374; 96375; 97110; 97116; 97163; 97166; 97530; 97535; 99285-25; A9270; J0456; J0696; J1160; J1644; J1940; J2270; J7050; J7120; U0004

== ENCOUNTER 2021-10-28 04:43 | Inpatient (IN) | payer MEDICARE ==
[~2021-10-28] VITALS: Ht 188 cm; Wt 81.7 kg
[~2021-10-28 04:43] MED LIST changes: +DIGOX125 MC1 PO; +DOCU100 PO; +Lopressor 25 mg25 MG PO; +MIRALAX11910 PO
[2021-10-28 05:34] LABS: Source, Urine Voided
[2021-10-28 05:36] LABS: BASOPHILS ABSOLUTE AUTO 0.04 K/mm3 (0.00-0.23); BASOPHILS PERCENT AUTO 0 % (0-2); EOSINOPHILS ABSOLUTE AUTO 0.03 K/mm3 (0.00-0.68); EOSINOPHILS PERCENT AUTO 0 % (0-6); Hematocrit 36.5 % (37.0-53.0); Hemoglobin 11.6 g/dL (13.5-17.5); IMMATURE GRAN ABSOLUTE AUTO 0.13 K/mm3 (0.00-0.10); IMMATURE GRAN PERCENT AUTO 1 % (0-1); LYMPHOCYTES ABSOLUTE AUTO 0.51 K/mm3 (0.84-5.20); LYMPHOCYTES PERCENT AUTO 3 % (21-46); MONOCYTES ABSOLUTE AUTO 1.33 K/mm3 (0.16-1.47); MONOCYTES PERCENT AUTO 7 % (4-13); Mean Corpuscular HGB 27.6 pg (26.0-34.0); Mean Corpuscular HGB Conc 31.8 g/dL (31.5-36.5); Mean Corpuscular Volume 87 fL (80-100); NEUTROPHILS ABSOLUTE AUTO 16.76 K/mm3 (1.96-9.15); NEUTROPHILS PERCENT AUTO 89 % (41-73); Platelet Count 332 K/mm3 (150-400); RDW Coefficient Variation 15.6 % (11.7-14.2); RDW Standard Deviation 49.8 fL (35.1-46.3); Red Blood Cell Count 4.21 M/mm3 (4.30-5.90)
[2021-10-28 05:40] LABS: Appearance, Urine Clear (Clear); Bilirubin, Urine Neg (Neg); Blood, Urine 1+ (Neg); Color, Urine Yellow (P-Yellow); Glucose Qualitative, Urine Neg (Neg); Ketones, Urine Neg (Neg); Leukocyte Esterase, Urine Neg (Neg); Nitrite, Urine Neg (Neg); Protein, Urine Neg (Neg); Specific Gravity, Urine 1.015 (1.003-1.022); Urobilinogen, Urine 1+ (Normal)
[2021-10-28 06:01] LABS: Albumin, Blood 2.3 g/dL (3.4-5.0); Albumin/Globulin Ratio 0.6 (0.8-1.8); Bilirubin, Total 1.3 mg/dL (0.1-1.0); Bun/Creatinine Ratio 27.6 (12.0-20.0); Calcium, Blood 8.4 mg/dL (8.5-10.1); Creatinine, Blood 1.96 mg/dL (0.60-1.20); Globulin, Blood 3.8 g/dL (2.2-4.0); Potassium, Blood 4.1 mmol/L (3.5-5.5); Total Protein, Blood 6.1 g/dL (6.4-8.2)
[2021-10-28 06:04] LABS: Bacteria Rare /hpf; Mucus Light (0-Heavy); Red Blood Cells, Urine 0-2 /hpf (0-2); Squamous Epithelial Cells Rare /hpf (Few); White Blood Cells, Urine 0-2 /hpf (0-5)
[2021-10-28 08:31] LABS: Digoxin (Lanoxin) 1.72 ug/mL (0.80-2.00)
--- NOTE | 2021-10-28 18:44 | NUR ---
ADMISSION NOTE PT IS ALERT BUT PLEASANTLY CONFUSED AND VERY POOR HISTORIAN. PT DID NOT UNDERSTAND WHERE HE WAS OR WHY HE WAS ADMITTED TO THE HOSPITAL. PT MAINTAINS SP02 >94 ON 3L O2 VIA NC. PT DESAT'S WHEN EATING. PT HAS MILD EDEMA IN BOTH UPPER AND LOWER EXTREMITIES. VSS NADN
--- NOTE | 2021-10-28 20:00 | NUR ---
ASSUMED CARE OF PT AT 1915. REPROT RECEIVED AT BEDSIDE. PT PRESENTS IN BED. ALERT AND VERY [place]. DOES ANSWER QUESTIONS APPROPRIATELY WHEN HE IS ABLE TO HEAR. PT MEDICATED WITH 5 MG OXYCODONE AND 650 MG TYLENOL FOR COMPLAINTS OF RIB AND BACK PAIN. PT CURRENTLY WEARING BACK BRACE SECONDARY TO COMPRESSION FRACTURES. PT ALSO HAS RECENT RIB FRACTURES FROM MULTIPLE FALLS AT HOME. WILL REVIEW CHART AND PLAN OF CARE FOR THIS PT.
--- NOTE | 2021-10-28 22:19 | NUR ---
PT ACCEPTS TURN IN BED. TO THE LEFT. IS ABLE TO HELP SOME AFTER MEDICATION WITH OXYCODONE AND TYLENOL. PT STATES THAT THIS TURN IS COMFORTABLE. ELEVATED RIGHT LEG ON PILLOW FOR ALIGNMENT AND FOR EDEMA REDUCTION. WILL CONTINUE TO MONITOR. PT HAS RECEIVED ALBUMIN WELL POST LASIX DOSAGE.
[2021-10-29 04:19] LABS: BASOPHILS ABSOLUTE AUTO 0.02 K/mm3 (0.00-0.23); BASOPHILS PERCENT AUTO 0 % (0-2); EOSINOPHILS ABSOLUTE AUTO 0.15 K/mm3 (0.00-0.68); EOSINOPHILS PERCENT AUTO 1 % (0-6); Hematocrit 34.2 % (37.0-53.0); Hemoglobin 10.6 g/dL (13.5-17.5); IMMATURE GRAN ABSOLUTE AUTO 0.16 K/mm3 (0.00-0.10); IMMATURE GRAN PERCENT AUTO 1 % (0-1); LYMPHOCYTES ABSOLUTE AUTO 0.53 K/mm3 (0.84-5.20); LYMPHOCYTES PERCENT AUTO 4 % (21-46); MONOCYTES ABSOLUTE AUTO 0.89 K/mm3 (0.16-1.47); MONOCYTES PERCENT AUTO 7 % (4-13); Mean Corpuscular HGB 27.1 pg (26.0-34.0); Mean Corpuscular Volume 88 fL (80-100); Mean Platelet Volume 9.7 fL (9.1-12.4); NEUTROPHILS ABSOLUTE AUTO 11.89 K/mm3 (1.96-9.15); NEUTROPHILS PERCENT AUTO 87 % (41-73); Platelet Count 335 K/mm3 (150-400); RDW Coefficient Variation 15.6 % (11.7-14.2); RDW Standard Deviation 50.2 fL (35.1-46.3); Red Blood Cell Count 3.91 M/mm3 (4.30-5.90); White Blood Cell Count 13.64 K/mm3 (4.00-11.30)
[2021-10-29 04:49] LABS: Magnesium, Blood 2.2 mg/dL (1.6-2.4)
[2021-10-29 04:50] LABS: Albumin, Blood 2.5 g/dL (3.4-5.0); Albumin/Globulin Ratio 0.8 (0.8-1.8); Bilirubin, Total 1.3 mg/dL (0.1-1.0); Bun/Creatinine Ratio 32.1 (12.0-20.0); Calcium, Blood 8.4 mg/dL (8.5-10.1); Creatinine, Blood 1.59 mg/dL (0.60-1.20); Globulin, Blood 3.2 g/dL (2.2-4.0); Potassium, Blood 3.7 mmol/L (3.5-5.5); Total Protein, Blood 5.7 g/dL (6.4-8.2)
--- NOTE | 2021-10-29 05:34 | NUR ---
PT HAS SLEPT MOST OF THE NIGHT. AWAKENS BRIEFLY FOR TURNS, AND THEN IS BACK TO SLEEP. PT MAINTAINS > 90 PERCENT SATURATIONS WITH OXYGEN AT 2 L/M PER NASAL CANNULA. THIS IS AMOUNT OF O2 THAT HE USES AT HOME. HAS NOT HAD ANY FURTHER COMPLAINTS OF PAIN. WILL READRESS WHEN PT AWAKENS. WILL CONTINUE TO MONITOR PT, AND WILL REPORT OFF TO ONCOMING RN.
--- NOTE | 2021-10-29 09:07 | NUR ---
ASSUMED CARE REPORT FROM KANCHAN SIMPSON AT 0700. PT RESTING IN BED. WAKES c VERBAL STIMULI. FOLLOWS COMMANDS. A&OX 3 BUT VERY [place]. C/O PAIN TO BACK. ASPEN BRACE IN PLACE. ABLE TO TRANSFER TO CHAIR c WALKER, GAIT BELT AND TWO PERSON ASSIST. ABLE TO ASSIST c REPOSITIONING. LUNGS DIM IN BASES, 2L VIA NC, HOME USE. VSS. TOLERATE BREAKFAST WELL. ABLE TO USE CALL LIGHT TO MAKE NEEDS KNOWN. WILL CONTINUE TO MONITOR.
--- NOTE | 2021-10-29 17:26 | NUR ---
SHIFT SUMMARY NO ACUTE CHANGES THIS SHIFT. DURING LUNCH, PT HAD EPISODE OF CONFUSION. ORIENTED TO SELF ONLY, QUIET, RELUCTANT TO ANSWER QUESTIONS, RESOLVED AFTER PT SLEPT FOR 1 HOUR. NOW A&OX 2/3. FORGETFUL OF EVENTS THAT LEAD TO HOSPITALIZATION. REORIENTS EASILY. FOLLOWS COMMANDS. INTERMITTANTLY C/O BACK PAIN THAT RESOLVES c REPOSITIONING. HEAD TENNIS PROFESSIONAL BRACE IN PLACE. [place], GENERALIZED WEAKNESS. ABLE TO HELP c REPOSITIONS IN BED. TOLERATING MEALS WELL, ENCOURAGED ENSURE INTAKE. SIGNIFICANT SKIN TEARS TO BUE, PHOTOS TAKEN, DRESSING CHANGED. ALSO HAS SKIN TEARS TO BACK. MEPITAL PLACED. SKIN FRAGILE. USES URINAL AND BED MUÑOZ, ONE LIQUID BROWN STOOL OUT. 2+ EDEMA TO BLE, DIURESES STOPPED AND IVF STARTED AT 75 ML/HR. VSS. WILL CONTINUE TO MONITOR UNTIL REPORT TO ONCOMING NURSE.
--- NOTE | 2021-10-29 22:55 | NUR ---
ASSUMED CARE OF PT @1900 A/O X3. O2 SATS INTERMITENTLY BELOW 92% PT IS NOT TOLERATING BIPAP MACHINE. CHANGED PATIENT TO NASAL CANULA ORALLY. PT FINDS IT DIFFICULT TO BREATH THROUGH NOSE NEEDED TO RESUME REQUESTED O2 SATURATION LEVELS. NO FAMILY OR VISITORS IN ROOM. VITALS WNL. WILL CONTINUE TO MONITOR.
[2021-10-30 03:49] LABS: BASOPHILS ABSOLUTE AUTO 0.02 K/mm3 (0.00-0.23); BASOPHILS PERCENT AUTO 0 % (0-2); EOSINOPHILS ABSOLUTE AUTO 0.16 K/mm3 (0.00-0.68); EOSINOPHILS PERCENT AUTO 2 % (0-6); IMMATURE GRAN ABSOLUTE AUTO 0.31 K/mm3 (0.00-0.10); IMMATURE GRAN PERCENT AUTO 3 % (0-1); LYMPHOCYTES ABSOLUTE AUTO 0.64 K/mm3 (0.84-5.20); LYMPHOCYTES PERCENT AUTO 6 % (21-46); MONOCYTES ABSOLUTE AUTO 0.79 K/mm3 (0.16-1.47); MONOCYTES PERCENT AUTO 7 % (4-13); Mean Corpuscular HGB 26.8 pg (26.0-34.0); Mean Corpuscular HGB Conc 30.6 g/dL (31.5-36.5); Mean Corpuscular Volume 88 fL (80-100); Mean Platelet Volume 9.5 fL (9.1-12.4); NEUTROPHILS PERCENT AUTO 82 % (41-73); Platelet Count 363 K/mm3 (150-400); RDW Coefficient Variation 15.7 % (11.7-14.2); RDW Standard Deviation 49.9 fL (35.1-46.3); Red Blood Cell Count 4.11 M/mm3 (4.30-5.90); White Blood Cell Count 10.72 K/mm3 (4.00-11.30)
[2021-10-30 04:38] LABS: Bun/Creatinine Ratio 30.1 (12.0-20.0); Calcium, Blood 8.2 mg/dL (8.5-10.1); Creatinine, Blood 1.23 mg/dL (0.60-1.20); Potassium, Blood 3.6 mmol/L (3.5-5.5)
--- NOTE | 2021-10-30 06:16 | NUR ---
END OF SHIFT SUMMARY A/O X2 WITH CONFUSION AT TIMES. PT BASELINE WITH A-FIB & PVC'S. VITALS WNL. 2+ EDEMA BLE, 1+EDEMA BUE. PT HAD EPISODES OF DESATURATION WHEN AWAKE AND DOING SMALL TASKS. PT MOUTH BREATHING ISSUED INCREASED OXYGEN DELIVERY AT 7L VIA ORAL NASAL CANULA. PT CURRENTLY SLEEPING WITH 2L NASAL CANULA AND O2 SATS 98% IV RFA PATENT AND FLUSHING WELL WITH NO ISSUES. PT PULLED ON IV LINE CREATING BLOOD UNDER TAGEDERM, LINE FLUSHED WITH NO ISSUES AFTER EPISODE. PT URINATED THROUGHOUT THE NIGHT IN URINAL AND IN BED. 3 LIQUID BROWN STOOLS THIS SHIFT. WOUND DRESSING C/D/I TO UPPER RIGHT ARM AND LOWER LEFT ARM. BRUISING, SCABS AND SKIN TEARS THROUGHOUT ENTIRE BODY DO TO MULTIPLE FALLS AT HOME. BARREL LINE OPERATOR BRACE WORN ENTIRE SHIFT WITH MODERATE PAIN ISSUES AND DISCOMFORT.
--- NOTE | 2021-10-30 12:00 | NUR ---
ASSUMED PATIENT CARE. NO SIGNS OF ACUTE DISTRESS, WCTM. THIS RN AGREES WITH MORNING ASSESSMENT DOCUMENTATION.
--- NOTE | 2021-10-30 16:43 | NUR ---
NO ACUTE EVENTS SINCE ASSUMING CARE. PT CALLS APPROPRIATELY WITH CALL LIGHT, NO ATTEMPTS TO GET OUT OF BED WITHOUT ASSISTANCE. VSS, ON 3 L VIA NASAL CANNULA. REPORT GIVEN TO ROBIN SIMPSON ON MEDICAL.
--- NOTE | 2021-10-30 18:22 | NUR ---
SUMMARY PT TRANSFERRED UP FROM PCU 19, PT ALERT AND ORIENTED, [place], ORIENTED PT TO ROOM AND CALL SYSTEM, NO COMPLAINTS, WILL CONT TO MONITOR
[2021-10-31 05:13] LABS: Albumin, Blood 2.2 g/dL (3.4-5.0); Anion Gap 4 mmol/L (6-16); Blood Urea Nitrogen 28 mg/dL (8-24); CO2, Blood 32 mmol/L (21-32); Calcium, Blood 8.9 mg/dL (8.5-10.1); Chloride, Blood 109 mmol/L (98-108); Glomerular Filtration Rate 73 (60-); Glucose, Blood 93 mg/dL (70-99); Phosphorus, Blood 2.5 mg/dL (2.5-4.9); Sodium, Blood 145 mmol/L (136-145)
--- NOTE | 2021-10-31 15:09 | NUR ---
Pt resting in recliner chair with his eyes closed. Pt wakes to verbal stimuli and struggles keeping his eyes opened. Ended visit to allow Pt to rest. Called and spoke with Pt's daughter Jagdish. Provided update and reviewed plan of care. Educated on disease process including trajectory. Discussed the importance of routine conversations with PCP and developing plans for the future as disease progresses. Discussed the importance of Pt considering his wishes for CPR and Intubation. Educated on life sustaining treatments including risk factors and implications of CPR. Jagdish reports having attempts in the past and does not feel Pt fulling understands the consequences. She reports plan to have further conversation regarding wishes. Jagdish expresses appreciation and reports no other concerns at this time. Palliative Care will remain available.
--- NOTE | 2021-10-31 15:46 | NUR ---
SHIFT SUMMARY PATIENT IS ALERT AND ORIENTED TO SELF ONLY. PATIENT HAS BEEN CONFUSED THIS SHIFT. PATIENT HAS HAD NO ACUTE EVENTS THIS SHIFT. VITAL SIGNS REVIEWED. PATIENT HAS HAD NO COMPLAINTS OF NAUSEA, PAIN OR SOB THIS SHIFT. PATIENT HAS HAD PAIN AND MEDICATED PER EMAR. PATIENT IS ON 4L NASAL CANNULA. BED IN LOCKED AND LOWEST POSITION. CALL LIGHT IN PLACE. WILL MONITOR UNTIL SHIFT CHANGE.
--- NOTE | 2021-11-01 08:23 | NUR ---
NO SIGNIFICANT CHANGES FROM PREVIOUS NIGHT WITH THE FOLLOWING EXCEPTIONS: PATIENT WAS ABLE TO MAINTAIN HIS 02 SATURATIONS MUCH BETTER WHICH ALLOWED HIM TO SLEEP A GREAT DEAL MORE THAN PREVIOUS NIGHT. BACK PAIN MANAGED TO A TOLERABLE LEVEL WITH CURRENT OXYCODONE DOSE AT HS.
--- NOTE | 2021-11-01 16:57 | NUR ---
SHIFT SUMMARY: NO ACUTE EVENTS. PT HAD TLSO BRACE ON WHILE IN BED, HAS ECCHYMOSIS NEAR L SCAPULA; BRACE OFF WHILE IN BED. DENIED NEED FOR PAIN MEDICATION. GOT UP TO BSC WITH PHYSICAL THERAPY, IS A BIT STRONGER THAN HE APPEARS, BUT FATIGUES QUICKLY. ON O2 @ 4 L/MIN NC WITH CONT OXIMETRY, OCC DOPSTER COUGH. TOLERATING DIET, APPETITE MODERATE. USING URINAL WITH ASSISTANCE.
--- NOTE | 2021-11-02 08:02 | NUR ---
JIMENA SLEPT VERY WELL OVERNIGHT. AROUND 2200, PATIENT REMOVED HIS MASK. REPLACED HIS 02 AND FELL ASLEEP. SHORTLY AFTER, THIS RN ENTERED THE ROOM TO FIND HIM WEARING HIS CANNULA, MOUTH WIDE OPEN, BREATHING VERY GENTLY WITH A SATURATION OF 99% ON 4 LITERS. RT WAS INFORMED, AND AGREED THAT IF WE KEPT A CLOSE EYE ON HIM, AND MAINTAINED HIS 02 WITHOUT STRUGGLING OR SNORING HE WOULD BE FINE FOR THE NIGHT. HE DID JUST THAT AND OTHER THAT WAKING MULTIPLE TIMES TO USE THE URINAL, HE WOULD FALL RIGHT BACK TO SLEEP. CHRONIC BACK PAIN RESOLVED WITH A DOSE OF OXYCODONE AT HS.
--- NOTE | 2021-11-02 17:56 | NUR ---
SHIFT SUMMARY: NO ACUTE EVENTS. DRESSINGS CHANGED ON BILATERAL ARM SKIN TEARS, WHICH ARE QUITE LARGE. WOUND CONSULT PLACED. C/O BACK PAIN X 1, MEDICATED PER EMAR WITH GOOD EFFECT. TLSO BRACE OFF WHILE IN BED. BLE EDEMA IMPROVED FROM YESTERDAY. HAD GOOD URINE OUTPUT FROM IV LASIX. ON O2 @ 4 L/MIN NC, CPAP AT HS. TOLERATING PO INTAKE. SLEPT ALL AFTERNOON.
--- NOTE | 2021-11-02 23:26 | NUR ---
2110 PT HAS COMPRESSION FX'S IN BACK, GAVE PAIN MED, WILL EVAL FOR EFFECT. BRUISES AND SKIN TEARS ON BACK, SKIN TEARS ON ALIYAH AND LFA. PT DENIES NEED FOR ANYTHING AT THIS TIME. NO OTHER APPARENT SIGNS OF DISTRESS. CALL LIGHT IS IN REACH. BED ALARM IS ON. 2215 TEMP AT HS WAS 99.6, TEMP NOW IS 98.9. PT LYING IN BED, DENIES NEED FOR ANYTHING AT THIS TIME. NO APPARENT SIGNS OF DISTRESS. CALL LIGHT IS IN REACH. BED ALARM IS ON.
--- NOTE | 2021-11-03 00:24 | NUR ---
PT LYING IN BED, EYES CLOSED, APPEARS TO BE RESTING. BREATHING IS EVEN, UNLABORED. NO APPARENT SIGNS OF DISTRESS. CALL LIGHT IS IN REACH.
--- NOTE | 2021-11-03 04:48 | NUR ---
0200 PT LYING IN BED, EYES CLOSED, APPEARS TO BE RESTING. BREATHING IS EVEN, UNLABORED. NO APPARENT SIGNS OF DISTRESS. CALL LIGHT IS IN REACH.
--- NOTE | 2021-11-03 04:49 | NUR ---
PT LYING IN BED, EYES CLOSED, APPEARS TO BE RESTING. WAKES EASILY TO VERBAL STIMULI. NO APPARENT SIGNS OF DISTRESS. CALL LIGHT IS IN REACH.
--- NOTE | 2021-11-03 04:49 | NUR ---
PT IS AAO X 3, DENIES SOB, ON 3L O2 NC AT 98%. PT DENIES ANY DISCOMFORT FOR THIS SHIFT.
--- NOTE | 2021-11-03 06:03 | NUR ---
PT LYING IN BED, EYES CLOSED, APPEARS TO BE RESTING. BREATHING IS EVEN, UNLABORED. NO APPARENT SIGNS OF DISTRESS. CALL LIGHT IS IN REACH. NO OTHER CHANGES THIS SHIFT.
[2021-11-03 07:01] LABS: Albumin, Blood 1.9 g/dL (3.4-5.0); Anion Gap 2 mmol/L (6-16); Blood Urea Nitrogen 16 mg/dL (8-24); Bun/Creatinine Ratio 17.8 (12.0-20.0); CO2, Blood 37 mmol/L (21-32); Calcium, Blood 8.3 mg/dL (8.5-10.1); Chloride, Blood 106 mmol/L (98-108); Glomerular Filtration Rate 83 (60-); Glucose, Blood 80 mg/dL (70-99); Phosphorus, Blood 2.4 mg/dL (2.5-4.9); Potassium, Blood 3.8 mmol/L (3.5-5.5); Sodium, Blood 145 mmol/L (136-145)
--- NOTE | 2021-11-03 19:24 | NUR ---
SHIFT SUMMARY A&O X3. VSS. BILAT ARM DRESSINGS CHANGED. SKIN TEAR WOUND BEDS ARE PINK, NO ODOR OR PURULENT DRAINAGE NOTED. XERFORM, ABD & KERLEX WRAP APPLIED AND SECURED WITH GARCÍA WRAP. PT HAD 1 LARGE BM AND 1 SMALL BM TODAY. PT SAT UP IN CHAIR UNTIL DINNER. PLAN IS FOR SNF PLACEMENT UPON DC.
--- NOTE | 2021-11-03 22:14 | NUR ---
2016 PT LYING IN BED, CHRONIC BACK PAIN R/T COMP FX'S IN BACK AND RIBS, GAVE ROXICODONE AND TYLENOL, WILL EVAL FOR EFFECT. DENIES SOB. ON 3 1/2 L NC O2 AT 97%. SCD'S, STOCKINGS.BRUISES AND SKIN TEARS ON BACK. SKIN TEARS ON ALIYAH AND L FA, DRESSINGS ARE C/D/I. PT DENIES NEED FOR ANYTHING ELSE AT THIS TIME. NO OTHER APPARENT SIGNS OF DISTRESS. CALL LIGHT IS IN REACH. BED ALARM IS ON. 2200 PT LYING IN BED, EYES CLOSED, APPEARS TO BE RESTING. BREATHING IS EVEN, UNLABORED. NO APPARENT SIGNS OF DISTRESS. CALL LIGHT IS IN REAC. BED ALARM IS ON.
--- NOTE | 2021-11-04 00:04 | NUR ---
PT LYING IN BED, EYES CLOSED, APPEARS TO BE RESTING. BREATHING IS EVEN, UNLABORED.NO APPARENT SIGNS OF DISTRESS. CALL LIGHT IS IN REACH. BED ALARM IS ON.
--- NOTE | 2021-11-04 02:53 | NUR ---
0200 PT LYING IN BED, EYES CLOSED, APPEARS TO BE RESTING. WAKES EASILY TO VERBAL STIMULI. NO APPARENT SIGNS OF DISTRESS. CALL LIGHT IS IN REACH. BED ALARM IS ON.
--- NOTE | 2021-11-04 04:00 | NUR ---
PT LYING IN BED, EYES CLOSED, APPEARS TO BE RESTING. BREATHING IS EVEN, UNLABORED. NO APPARENT SIGNS OF DISTRESS. CALL LIGHT IS IN REACH. BED ALARM IS ON.
--- NOTE | 2021-11-04 04:01 | NUR ---
PT IS AAO X 3, COMP FX'S IN BACK/RIBS, GOT ELVIS AND TYLENOL AT HS. DENIES SOB, ON 3 1/2 L NC O2 AT 97%. SCD'S/STOCKING. CPAP IN ROOM AND CONT BIOX ON. I.S. ON TABLE. SKIN TEARS AND BRUISES ON BACK. SKIN TEARS ON ALIYAH AND LFA, DRESSING C/D/I.
--- NOTE | 2021-11-04 05:31 | NUR ---
PT LYING IN BED, AWAKE, WATCHING TV. REQUESTED AND RECIEVED COFFEE. NO APPARENT SIGNS OF DISTRESS. CALL LIGHT IS IN REACH. BED ALARM IS ON. NO OTHER CHANGES THIS SHIFT.
[2021-11-04 12:28] LABS: Influenza A, PCR NEGATIVE (NEGATIVE); Influenza B, PCR NEGATIVE (NEGATIVE); Resp Syncytial Virus, PCR NEGATIVE (NEGATIVE); SARS-Cov-2 (COVID-19) PCR, MMC NEGATIVE (NEGATIVE)
--- NOTE | 2021-11-04 13:38 | NUR ---
WOUND HOTO AND ASSESSMENT IN HARD CHART. WOUND CARE ORDERS IN [facility]
[2021-11-04] MEDS ORDERED: SERT25 PO (13:42)
[2021-11-04] MEDS ORDERED: DIGOX125 MC1 PO (13:43)
[2021-11-04] MEDS ORDERED: ACET325 PO (13:43)
--- NOTE | 2021-11-04 14:38 | NUR ---
DC TO SNF PT TO [facility] VIA W/C TRANSPORT BY [facility]MEDICAL TRANSPORT. ALL PERSONAL BELONGINGS SENT WITH PT. GAVE REPORT TO CHASITY SIMPSON AT [facility].
== END 2021-11-04 14:37 | DRG 551 ==
LOC: ER 04:43 → ERHOLD 10:18 → PCU 16:41 → MEDS 10-30 17:18
PROVIDERS: Emergency Medicine; Family Medicine; Internal Medicine; Nurse Practitioner Acute Care; ADMIT Internal Medicine
DX: S32.018A Other fracture of first lumbar vertebra, initial encounter for closed fracture (principal); I50.33 Acute on chronic diastolic (congestive) heart failure; N17.9 Acute kidney failure, unspecified; S22.41XA Multiple fractures of ribs, right side, initial encounter for closed fracture; S22.018A Other fracture of first thoracic vertebra, initial encounter for closed fracture; S22.068A Other fracture of T7-T8 thoracic vertebra, initial encounter for closed fracture; S22.081A Stable burst fracture of T11-T12 vertebra, initial encounter for closed fracture; J96.11 Chronic respiratory failure with hypoxia; I13.0 Hypertensive heart and chronic kidney disease with heart failure and stage 1 through stage 4 chronic kidney disease, or unspecified chronic kidney disease; I48.20 Chronic atrial fibrillation, unspecified; Z20.822 Contact with and (suspected) exposure to COVID-19; I95.9 Hypotension, unspecified; D72.829 Elevated white blood cell count, unspecified; E66.01 Morbid (severe) obesity due to excess calories; E78.00 Pure hypercholesterolemia, unspecified; G47.33 Obstructive sleep apnea (adult) (pediatric); F32.A Depression, unspecified; I65.29 Occlusion and stenosis of unspecified carotid artery; M54.6 Pain in thoracic spine; S41.112A Laceration without foreign body of left upper arm, initial encounter; S41.111A Laceration without foreign body of right upper arm, initial encounter; N18.9 Chronic kidney disease, unspecified; E86.0 Dehydration; J44.9 Chronic obstructive pulmonary disease, unspecified; H91.10 Presbycusis, unspecified ear; R79.89 Other specified abnormal findings of blood chemistry; E88.09 Other disorders of plasma-protein metabolism, not elsewhere classified; D63.1 Anemia in chronic kidney disease; M79.2 Neuralgia and neuritis, unspecified; R29.6 Repeated falls; E83.39 Other disorders of phosphorus metabolism; Z98.890 Other specified postprocedural states; Z90.49 Acquired absence of other specified parts of digestive tract; Z99.81 Dependence on supplemental oxygen; Z79.899 Other long term (current) drug therapy; Z79.82 Long term (current) use of aspirin; Z79.891 Long term (current) use of opiate analgesic; Z79.52 Long term (current) use of systemic steroids; Z79.02 Long term (current) use of antithrombotics/antiplatelets; Z87.891 Personal history of nicotine dependence; Z68.23 Body mass index [BMI] 23.0-23.9, adult; W18.30XA Fall on same level, unspecified, initial encounter; F03.90 Unspecified dementia, unspecified severity, without behavioral disturbance, psychotic disturbance, mood disturbance, and anxiety
CPT/HCPCS: 0241U; 36415; 51798; 70450; 71045; 72128; 72131; 80048; 80053; 80069; 80162; 81001; 82550; 83735; 83880; 84145; 84484; 85025; 93005; 93010; 94660; 94760; 94762; 96361; 96374; 96375; 97110; 97116; 97162; 97530; 99285-25; A9270; J1644; J1940; J2405; J3010; J7030; P9047

== ENCOUNTER 2021-12-06 13:17 | Inpatient (IN) | payer MEDICARE ==
[~2021-12-06] VITALS: Ht 182.9 cm; Wt 84.0 kg
[~2021-12-06 13:17] MED LIST changes: +ACET325 PO; +SERT25 PO
[2021-12-06] MEDS ORDERED: ASPI325 PO (14:05)
[2021-12-06] MEDS ORDERED: AMLODIPINE BESY10 MG PO (14:05)
[2021-12-06] MEDS ORDERED: FLUTICASONE-SA1 EA12 INH (14:06)
[2021-12-06] MEDS ORDERED: FUROSEMIDE20 MG PO (14:06)
[2021-12-06] MEDS ORDERED: FLUTICASONE-SA1 EAC9 INH (14:06)
[2021-12-06 14:29] LABS: BASOPHILS ABSOLUTE AUTO 0.11 K/mm3 (0.00-0.23); BASOPHILS PERCENT AUTO 1 % (0-2); EOSINOPHILS ABSOLUTE AUTO 0.04 K/mm3 (0.00-0.68); EOSINOPHILS PERCENT AUTO 0 % (0-6); Hemoglobin 9.9 g/dL (13.5-17.5); IMMATURE GRAN ABSOLUTE AUTO 0.07 K/mm3 (0.00-0.10); IMMATURE GRAN PERCENT AUTO 1 % (0-1); LYMPHOCYTES ABSOLUTE AUTO 1.31 K/mm3 (0.84-5.20); LYMPHOCYTES PERCENT AUTO 11 % (21-46); MONOCYTES PERCENT AUTO 5 % (4-13); Mean Corpuscular HGB 27.6 pg (26.0-34.0); Mean Corpuscular HGB Conc 30.9 g/dL (31.5-36.5); Mean Corpuscular Volume 89 fL (80-100); Mean Platelet Volume 9.4 fL (9.1-12.4); NEUTROPHILS ABSOLUTE AUTO 10.21 K/mm3 (1.96-9.15); NEUTROPHILS PERCENT AUTO 83 % (41-73); Platelet Count 333 K/mm3 (150-400); RDW Standard Deviation 52.4 fL (35.1-46.3); Red Blood Cell Count 3.59 M/mm3 (4.30-5.90); White Blood Cell Count 12.34 K/mm3 (4.00-11.30)
[2021-12-06 14:49] LABS: Albumin, Blood 2.3 g/dL (3.4-5.0); Albumin/Globulin Ratio 0.7 (0.8-1.8); Bilirubin, Total 0.5 mg/dL (0.1-1.0); Bun/Creatinine Ratio 25.4 (12.0-20.0); Calcium, Blood 8.4 mg/dL (8.5-10.1); Creatinine, Blood 1.18 mg/dL (0.60-1.20); Globulin, Blood 3.5 g/dL (2.2-4.0); Potassium, Blood 4.2 mmol/L (3.5-5.5); Total Protein, Blood 5.8 g/dL (6.4-8.2)
[2021-12-06 14:51] LABS: International Normalized Ratio 1.09; Prothrombin Time Results 11.4 Sec (9.7-11.5)
[2021-12-06 20:51] LABS: Hematocrit 27.4 % (37.0-53.0); Hemoglobin 8.4 g/dL (13.5-17.5)
--- NOTE | 2021-12-07 00:30 | NUR ---
ASSUMED CARE OF PT AT 2320 RECIEVED REPORT FROM BAIRON SIMPSON IN ED. PT ARRIVED ON STRETCHER PLEASENT AND CORAPORATIVE. PT IS EXTREAMLY [place] ADMISSION QUESTIONS WERE DIFFICULT TO GET RESPONCES BECAUSE OF THIS. PT HAS MULTIPLE SKINS AND INFORMED US HE LIVES ALONE WITH A [place] ARCHITECT THAT VISTS 4X A DAY BUT INFORMED US SHE DIDNT SHOW TODAY AND "WAITED WAITED WAITED" PIC TAKEN OF WOUNDS AND PLACED IN CHART.
[2021-12-07 03:23] LABS: Hematocrit 24.1 % (37.0-53.0); Hemoglobin 7.3 g/dL (13.5-17.5)
[2021-12-07 03:44] LABS: Albumin, Blood 1.8 g/dL (3.4-5.0); Albumin/Globulin Ratio 0.6 (0.8-1.8); Bilirubin, Total 0.4 mg/dL (0.1-1.0); Bun/Creatinine Ratio 29.8 (12.0-20.0); Calcium, Blood 7.7 mg/dL (8.5-10.1); Creatinine, Blood 1.04 mg/dL (0.60-1.20); Globulin, Blood 2.8 g/dL (2.2-4.0); Potassium, Blood 4.4 mmol/L (3.5-5.5); Total Protein, Blood 4.6 g/dL (6.4-8.2)
--- NOTE | 2021-12-07 06:47 | NUR ---
END OF SHIFT SUMMARY PT ARIVED FROM ED PT HAS BEEN RESTING COMFORTABLE FOR MOST OF SHIFT PT HH HAS CONTIMUED TO DROP AND A PROTONIX GTT AND 1UNIT OF BLOOD HAS BEEN STARTED. PT HAS SMALL AMOUMT OF MELENA AT START OF SHIFT BUT NO OTHER BMS. PT HAS BEEN AZRA STABLE WILL CONTINUE TO MONITOR AND REPORT TO ONCOMING RM
--- NOTE | 2021-12-07 07:37 | NUR ---
ASSUMED CARE: PT RESTING IN BED, BLOOD INFUSING PER ORDERS. AFIB IN THE 90S. NO ACUTE NEEDS AT THIS TIME.
--- NOTE | 2021-12-07 09:35 | NUR ---
PT ASKED FOR ASSISTANCE TO BEDSIDE COMMODE. 2 ASSIST REQUIRED DUE TO WEAKNESS. PT'S BOWEL MOVEMENT WAS LARGE WITH BLOOD AND CLOTS NOTED. PT STOOD BACK UP TO GET BACK IN BED AND STATED HE DID NOT FEEL WELL. CALL TO DR JACKSON AND ASKED ABOUT GI AND IR. STATED THAT SINCE NONE ARE AVAILABLE HERE, WE ARE WORKING ON TRYING TO FIND A BED ELSEWHERE BUT IN THE MEAN TIME, TRENDING H/H AND TRANSFUSING NEEDED
[2021-12-07 09:54] LABS: Hematocrit 24.5 % (37.0-53.0); Hemoglobin 7.6 g/dL (13.5-17.5)
--- NOTE | 2021-12-07 11:03 | NUR ---
Pt is known to this ticket writer from previous hospital stay. Pt admitted to the hospital for GI bleed. Spoke with Primary RN Shaneka and discussed case. Pt resting in bed upon arrival. Pt is [place]. Reviewed plan of care and engaged in therapeutic conversation regarding code status wishes. Educated on life sustaining treatments including risk factors and implications of CPR. After answering questions and listening to concerns Pt elects to be DNR. Spoke with Pt's daughter Jagdish over the phone. Provided update and reviewed plan of care. Discussed Pt's code status wishes with Jagdish confirming DNR as Pt has completed a POLST recently. She reports plan to bring POLST and AD with her during her visit. Called and spoke with Dr Harper. Placed DNR order for PT Per V/O from Dr Harper. Palliative Care will remain available.
[2021-12-07 11:15] LABS: Influenza A, PCR NEGATIVE (NEGATIVE); Influenza B, PCR NEGATIVE (NEGATIVE); Resp Syncytial Virus, PCR NEGATIVE (NEGATIVE); SARS-Cov-2 (COVID-19) PCR, MMC NEGATIVE (NEGATIVE)
[2021-12-07 15:01] LABS: Hematocrit 23.5 % (37.0-53.0); Hemoglobin 7.3 g/dL (13.5-17.5)
--- NOTE | 2021-12-07 18:23 | NUR ---
SHIFT SUMMARY: PT HAD ONE LARGE, BLOODY BOWEL MOVEMENT TODAY. TRENDING H/H. FROM [facility] SPOKE WITH DR JACKSON TO ACCEPT PT BUT NO BEDS AVAILABLE. PT'S DAUGHTER CAME TO SEE PT AND HAS BEEN UPDATED ON STATUS. VSS AT THIS TIME. NO ACUTE NEEDS
[2021-12-07 20:42] LABS: Hematocrit 23.3 % (37.0-53.0); Hemoglobin 7.4 g/dL (13.5-17.5)
[2021-12-08 02:43] LABS: BASOPHILS ABSOLUTE AUTO 0.07 K/mm3 (0.00-0.23); BASOPHILS PERCENT AUTO 1 % (0-2); EOSINOPHILS ABSOLUTE AUTO 0.37 K/mm3 (0.00-0.68); EOSINOPHILS PERCENT AUTO 5 % (0-6); Hematocrit 22.1 % (37.0-53.0); IMMATURE GRAN ABSOLUTE AUTO 0.03 K/mm3 (0.00-0.10); IMMATURE GRAN PERCENT AUTO 0 % (0-1); LYMPHOCYTES ABSOLUTE AUTO 1.77 K/mm3 (0.84-5.20); LYMPHOCYTES PERCENT AUTO 22 % (21-46); MONOCYTES ABSOLUTE AUTO 0.62 K/mm3 (0.16-1.47); MONOCYTES PERCENT AUTO 8 % (4-13); Mean Corpuscular HGB 28.3 pg (26.0-34.0); Mean Corpuscular HGB Conc 31.7 g/dL (31.5-36.5); Mean Corpuscular Volume 90 fL (80-100); Mean Platelet Volume 9.7 fL (9.1-12.4); NEUTROPHILS ABSOLUTE AUTO 5.18 K/mm3 (1.96-9.15); NEUTROPHILS PERCENT AUTO 64 % (41-73); Platelet Count 245 K/mm3 (150-400); RDW Standard Deviation 52.3 fL (35.1-46.3); Red Blood Cell Count 2.47 M/mm3 (4.30-5.90); White Blood Cell Count 8.04 K/mm3 (4.00-11.30)
[2021-12-08 03:07] LABS: Albumin, Blood 1.7 g/dL (3.4-5.0); Albumin/Globulin Ratio 0.6 (0.8-1.8); Bilirubin, Total 0.5 mg/dL (0.1-1.0); Bun/Creatinine Ratio 25.2 (12.0-20.0); Calcium, Blood 7.5 mg/dL (8.5-10.1); Creatinine, Blood 1.03 mg/dL (0.60-1.20); Globulin, Blood 2.8 g/dL (2.2-4.0); Potassium, Blood 3.7 mmol/L (3.5-5.5); Total Protein, Blood 4.5 g/dL (6.4-8.2)
--- NOTE | 2021-12-08 03:15 | NUR ---
NOTIFIED HEMAGLOBIN WAS 7 1 UNIT RBC ORDERED AND STARTED
--- NOTE | 2021-12-08 06:35 | NUR ---
END OF SHIFT SUMMARY PT HAS RESTED FOR MOST OF SHIFT. HE ATTEMTED TO HAVE BM MULTIPLE TIMES AT START OF SHIFT HE ONLY HAD A SMALL AMOUT OF MELENA. HE WAS BATHED AND BEDING CHANGED AT THAT TIME. HE HAS BEEN AZRA STABLE THROUGH OUT SHIFT. REMAIND ON HIS HOME O2 2L SATURATIONS>95 HR STABLE IN AFIB. HE STILL CONTINUES TO DROP SLOWLY HH AND WAS GIVEN 1UNIT OF RBC FOR HEMAGLOBIN OF 7 IT IS FINISHING UP CURRENTLY. NO SIGNS OR SIMPTOMS OF A REACTION. PLANS IS FOR HIM TO GET TRANSFERED TO A FACILITY THAT HAS GI. WILL CONTINUE MONITOR AND REPORT OFF TO ONCOMING TATIANA
--- NOTE | 2021-12-08 07:05 | NUR ---
END OF SHIFT SUMMARY RECIEVED FROM ED. PT WALK TO BED WITH AN UNSTEADY GAIT. PT APEARS ILL JAUNDIS AND UNCOMFORTABLE. PLACED ON MONITOR PT HAS BEEN VITAL STABLE. STARTED PROTONIX AND OCTREAOTIED. STARTED ANDOTHER IV FOR THE D5 AND ELECTROLIGHTS TREATED PAIN WITH 25 OF FENT WHICH DIDNT HELP AND ANOTHER 25 SHORTLY AFTER. PT EXPRECESSED SOME RELIEF BUT IS REQUESTING MORE PAIN MEDS REPORTED TO DAY SHIFT RN.
--- NOTE | 2021-12-08 07:14 | NUR ---
ASSUMED CARE: BLOOD COMPLETED UPON ARRIVAL TO ROOM. PT IS CURRENTLY IN AFIB AT 82. NO ACUTE NEEDS OR CONCERNS AT THIS TIME.
[2021-12-08 08:39] LABS: Hematocrit 25.5 % (37.0-53.0)
--- NOTE | 2021-12-08 08:42 | NUR ---
SPOKE WITH DR JACKSON ABOUT PT'S STATUS. DR JACKSON SAID HE WOULD SPEAK WITH DR PETER ABOUT CONSULTING ON PT. ELECTRICAL DESIGNER AND NURSING PUMP ERECTOR AWARE
--- NOTE | 2021-12-08 10:15 | NUR ---
PT HAD MEDIUM SIZED BM THAT WAS MAROON WITH CLOTS. CALL TO DR WILSON TO ASK AOBUT H AND H REPEATS AND THE POTENTIAL OF CONSULTING IR. STATES SHE WILL DISCUSS FURTHER WITH DR JACKSON
[2021-12-08 12:28] LABS: Hematocrit 23.9 % (37.0-53.0); Hemoglobin 7.6 g/dL (13.5-17.5)
--- NOTE | 2021-12-08 14:44 | NUR ---
CALLED DR PETER'S OFFICE TO CHECK IN ON CONSULT. CARE ATTENDANT STATED THAT DR PETER WANTED A CT DONE FOR FURTHER IMAGING. CALL TO DR JACKSON WHO STATED HE WILL GET CT ANGIO ORDERED
[2021-12-08 15:06] LABS: Hematocrit 25.5 % (37.0-53.0); Hemoglobin 7.7 g/dL (13.5-17.5)
--- NOTE | 2021-12-08 16:35 | NUR ---
CALL TO DR WILSON TO DETERMINE IF CT WILL BE ORDERED. DR WILSON STATED SHE WILL CONSULT WITH DR JACKSON TO DETERMINE WHAT TO ORDER.
--- NOTE | 2021-12-08 18:55 | NUR ---
SHIFT SUMMARY: PT REMAINS NPO, AWAITING CT SCAN. DR PETER HAS NOT SEEN PT BUT OFFICE STAFF STATES THAT HE IS AWARE OF PT. NEW IV THIS EVENING IN CASE OF BLOOD TRANSFUSION. RESTING QUIETLY AT THIS TIME.
[2021-12-09 03:46] LABS: Hematocrit 23.5 % (37.0-53.0); Hemoglobin 7.3 g/dL (13.5-17.5)
--- NOTE | 2021-12-09 04:56 | NUR ---
SHIFT SUMMARY NO ACUTE EVENTS OVERNIGHT. PATIENT SLEPT THROUGH MOST OF SHIFT. CT ABD COMPLETED AND PG DRESSING CHANGED DUE TO LEAKING AT HUB THAT HAS BEEN FIXED. NO FURTHER PROBLEMS WITH THE PG. HGB TRENDING DOWN AT 7.3 FROM 7.7-NO TRANSFUSION AT THIS TIME AND NO SIGNS OF ACTIVE BLEEDING. NO NAUSEA, VOMITING OR BM DURING SHIFT. PROTONIX REMAINS INF. VSS.
[2021-12-09 07:59] LABS: Hematocrit 23.8 % (37.0-53.0); Hemoglobin 7.4 g/dL (13.5-17.5)
--- NOTE | 2021-12-09 19:04 | NUR ---
SUMMARY PT RESTING IN BED. A/O X4, MOHEGAN. DENIES PAIN. USES CALL LIGHT APPROPRIATLEY. TOLERATING CLEAR LIQUID DIET. H&H WAS STABLE THIS AM. STILL IN AFIB. PCU STATUS. NO SIGN OF DISTRESS. STILL WAITING FOR GI BED AT OTHER HOSPITALS. NO INTERVENTIONS TO BE DONE BY IR HERE. NO ACUTE CHANGES THIS SHIFT.
--- NOTE | 2021-12-09 19:40 | NUR ---
PATIENT PASSED MEDIUM DARK MAROON STOOL ON BEDPAN. PATIENT ABLE TO ASSIST WITH REPOSITIONING IN BED. VERBALIZED FRUSTRATION WITH CONTINUED LOOSE STOOLS. ARELI CLEAR LIQUIDS WELL.
--- NOTE | 2021-12-10 07:00 | NUR ---
ASSUME CARE: I have assumed care of this patient.
[2021-12-10 07:06] LABS: Hemoglobin 6.9 g/dL (13.5-17.5)
--- NOTE | 2021-12-10 07:22 | NUR ---
SUMMARY PATIENT SLEEPING T/O NIGHT, AWAKENS TO SLIGHT STIMULI. HAVING ONE MEDIUM SOFT DARK MAROON STOOL AT BEGINNING OF SHIFT. PROTONIX DRIP CONTINUES.
[2021-12-10 07:27] LABS: Albumin, Blood 1.7 g/dL (3.4-5.0); Albumin/Globulin Ratio 0.6 (0.8-1.8); Bilirubin, Total 0.7 mg/dL (0.1-1.0); Bun/Creatinine Ratio 14.5 (12.0-20.0); Calcium, Blood 7.9 mg/dL (8.5-10.1); Creatinine, Blood 1.17 mg/dL (0.60-1.20); Globulin, Blood 2.7 g/dL (2.2-4.0); Potassium, Blood 3.3 mmol/L (3.5-5.5); Total Protein, Blood 4.4 g/dL (6.4-8.2)
--- NOTE | 2021-12-10 11:50 | NUR ---
EDUCATION: pt given educational printout on diverticulitis to reinforce verbal education provided by RN.
[2021-12-10 12:23] LABS: Hematocrit 27.4 % (37.0-53.0); Hemoglobin 8.7 g/dL (13.5-17.5)
--- NOTE | 2021-12-10 17:49 | NUR ---
SHIFT SUMMARY: NEURO: pt alert and oriented x 4 and OSUNA. Although, he is forgetful at times and asks, "What am I doing here?" while up in chair. CARDIAC: afib on monitor. Bradycardia down to low 50's while sleeping; not sustained. RESPIRATORY: pt on home O2 of 2L NC. lung sounds clear GI/: pt tolerating clear liquid diet well. He is continent with the urinal. One small streak of liquid, maroon BM today. SKIN: several skin tears noted to arms and small wound on upper back. Sacrum and coccyx intact. No new breakdown noted. PSYCH/SOCIAL: Pt up watching news. family was transferred into room for pt to speak with. He was also talking on his cell phone while up in chair today.
[2021-12-10 20:10] LABS: Hematocrit 27.2 % (37.0-53.0); Hemoglobin 8.3 g/dL (13.5-17.5)
[2021-12-11 03:18] LABS: Hematocrit 25.5 % (37.0-53.0); Hemoglobin 8.1 g/dL (13.5-17.5)
--- NOTE | 2021-12-11 05:43 | NUR ---
END OF SHIFT SLUMMARY NO ACUTE EVENT OVERNIGHT PT HAS BEEN RESTING COMFORTABLE FOR MOST OF SHIFT VITAL SIGNS HAVE BEEN STABLE. PT RECIEVED 1 UNIT OF BLOOD AND HIS HEMAGLOBIN WAS 8,9 THIS MORNING IT HAS TRENDED DOWN TO 8.1. NO BM FOR MY SHIFT PT IS STILL ON PROTONIX DRIP. WILL CONTINUE TO MONITOR AND REPORT OFF TO ONCOMING TATIANA
[2021-12-11 06:52] LABS: Bun/Creatinine Ratio 14.1 (12.0-20.0); Calcium, Blood 7.4 mg/dL (8.5-10.1); Creatinine, Blood 0.99 mg/dL (0.60-1.20); Potassium, Blood 3.4 mmol/L (3.5-5.5)
[2021-12-11 11:08] LABS: Hematocrit 31.5 % (37.0-53.0); Hemoglobin 9.5 g/dL (13.5-17.5)
--- NOTE | 2021-12-11 12:13 | NUR ---
PT WORKED WITH PT THIS AFTERNOON, ABLE TO TRANSFER FROM BED TO CHAIR USING FWW WITH LITTLE DIFFICULTY. PT SITTING IN CHAIR INDEPENDENTLY EATING LUNCH. PT HAD 1 LOOSE BROWN/GREEN BOWEL MOVEMENT, NO EVIDENCE OF BLEEDING. PTS DAUGHTER CALLED AND WAS UPDATED WITH PT'S PROGRESS AND PLAN OF CARE.
--- NOTE | 2021-12-11 17:22 | NUR ---
SHIFT SUMMARY PT REMAINS ALERT AND ORIENTED. WORKED WITH PT/OT TODAY, ABLE TO AMBULATE TO CHAIR USING FWW. PT REMAINS ON 2L NC (BASELINE), SLIGHT DESATURATION WITH EXERTION TO 87%. GOOD APPETITE. NO EVIDENCE OF CONTINUED GI BLEED. GOOD URINARY OUTPUT. VSS T/O SHIFT. PT MADE MEDICAL STATUS WITH NO TELEMETRY. PT DENIES NEEDS OR CONCERNS AT THIS TIME. WILL REPORT TO ONCOMING NURSE.
[2021-12-11 19:04] LABS: Hematocrit 31.3 % (37.0-53.0); Hemoglobin 9.6 g/dL (13.5-17.5)
--- NOTE | 2021-12-11 20:00 | NUR ---
ASSUMED CARE OF PT AT 1915. REPORT RECEIVED AT BEDSIDE. PT PRESENTS IN BED. ALERT AND ORIENTED. PLEASANT AND COOPERATIVE WITH CARE AND ASSESSMENT. DENIES COMPLAINTS OF PAIN. NO DYSPNEA. NO GI DISTRESS. NO S/S BLEEDING. WILL REVIEW CHART AND PLAN OF CARE FOR THIS PT.
[2021-12-12 03:53] LABS: Hematocrit 26.2 % (37.0-53.0); Hemoglobin 8.1 g/dL (13.5-17.5)
--- NOTE | 2021-12-12 04:00 | NUR ---
PT TRANSFERRED TO PCU. REPORT GIVEN TO TATIANA LAGOS. OF NOTE: DID GET PT OUT OF BED THIS NIGHT TO BEDSIDE COMMODE. PT WAS UNSUCCESSFUL IN HAVING BM. PT WAS ABLE TO DO MUCH OF THE TRANSFER WITH CUES ONCE HE WAS STOOD UP TALL. PT STATES THAT HE WAS SURPRISED AT HIS ABILITY.
--- NOTE | 2021-12-12 05:33 | NUR ---
TRANSFER/ SHIFT SUMMARY ASSUMED CARE OF PT AT 0330, TRANSFER FROM ICU, REPORT GIVEN FROM KANCHAN. PT IS A/OX4 BUT UNITED [place]. HEART SOUNDS IRREGULAR. PT WEARING 2L NC WITH SATURATIONS ABOVE 95%. PT USES URINAL AT BEDSIDE. REPORT WAS GIVEN THAT PT IS A 2P ASSIST TO BSC. PT HAS VARIES SKIN TEARS DUE TO ADHESIVE TAPE AND FRAGILE SKIN. IV DRESSINGS CHANGED. PT HAS NO NEW COMPLAINTS.
[2021-12-12 08:16] LABS: BASOPHILS ABSOLUTE AUTO 0.04 K/mm3 (0.00-0.23); BASOPHILS PERCENT AUTO 1 % (0-2); EOSINOPHILS ABSOLUTE AUTO 0.44 K/mm3 (0.00-0.68); EOSINOPHILS PERCENT AUTO 5 % (0-6); Hematocrit 27.7 % (37.0-53.0); Hemoglobin 8.5 g/dL (13.5-17.5); IMMATURE GRAN ABSOLUTE AUTO 0.04 K/mm3 (0.00-0.10); IMMATURE GRAN PERCENT AUTO 1 % (0-1); LYMPHOCYTES ABSOLUTE AUTO 1.56 K/mm3 (0.84-5.20); LYMPHOCYTES PERCENT AUTO 18 % (21-46); MONOCYTES ABSOLUTE AUTO 0.66 K/mm3 (0.16-1.47); MONOCYTES PERCENT AUTO 8 % (4-13); Mean Corpuscular HGB 28.3 pg (26.0-34.0); Mean Corpuscular HGB Conc 30.7 g/dL (31.5-36.5); Mean Corpuscular Volume 92 fL (80-100); Mean Platelet Volume 9.5 fL (9.1-12.4); NEUTROPHILS PERCENT AUTO 68 % (41-73); Platelet Count 315 K/mm3 (150-400); RDW Standard Deviation 53.8 fL (35.1-46.3); White Blood Cell Count 8.54 K/mm3 (4.00-11.30)
[2021-12-12 08:33] LABS: Bun/Creatinine Ratio 10.8 (12.0-20.0); Calcium, Blood 7.8 mg/dL (8.5-10.1); Creatinine, Blood 0.92 mg/dL (0.60-1.20); Potassium, Blood 3.3 mmol/L (3.5-5.5)
[2021-12-12 13:07] LABS: Hematocrit 29.4 % (37.0-53.0)
--- NOTE | 2021-12-12 15:13 | NUR ---
TRANSFER UPDATE REPORT GIVEN TO SURGICAL FLOOR RN AT 1513.
--- NOTE | 2021-12-12 15:51 | NUR ---
PT ARRIVED TO UNIT AT APPROXIMATELY 15:30. HEAD TO TOE ASSESSMENT WAS PERFORMED, PT IS ORIENTED TO PERSON, PLACE, AND SITUATION. PT IS HARD OF HEARING. PULSES WERE PRESENT AND EQUAL BILATERALLY. LUNGS CTA BILATERALLY. SKIN IS INTACT, WARM, AND DRY. THERE IS ONE SMALL PRESSURE SORE ON HIS BACK, COVERED BY ALLEVYN DRESSING. IT IS CLOSED, RED, NO DRAINAGE, AND BLANCHES. HE DENEIS PAIN. PT HAS POWERGLIDE. PT IS RESTING COMFORTABLY.
--- NOTE | 2021-12-12 18:39 | NUR ---
PT TRANSFERRED BY PCU. HEAD TO TOE ASSESSMENT COMPLETED. PT IS NOT IN PAIN AND IS RESTING COMFORTABLY. EVENING MEDS GIVEN, PT HAS NO ACUTE NEEDS AND IS ABLE TO MAKE NEEDS KNOWN. HE USES URINAL AT BEDSIDE. CALL LIGHT WITHIN REACH.
[2021-12-12 19:38] LABS: Hemoglobin 8.7 g/dL (13.5-17.5)
--- NOTE | 2021-12-13 04:00 | NUR ---
SHIFT SUMMARY NO ACUT CHANGES OVERNIGHT. VSS. PT REPORTS CHRONIC BACK PAIN. MEDICATED WITH TYLENOL BEFORE BED. PT DENIES DIZZINESS, LIGHTHEADEDNESS, NUMBNESS AND TINGLING SENSATION. ADMITTED FOR SUSPECTED GI BLEED. H&H MONITORED Q8, IT HAS BEEN STABLE. VOIDING INDEPENDENT WITH HIS URINAL. AOX3. USE CALL LIGHT APPROPRIATELY. SOME MILD EDEMA ON BLE. PITTING ON RLE. PT ON 3L NC, SATS ABOVE 90%. DENIES SOB. REFUSE BREATHING TREATMENT LAST NIGHT. TOLERATING CLEAR LIQ DIET. DENIES N/V. CALL LIGHT WITHIN REACH. WILL PROVIDE REPORT TO ONCOMING NURSE.
[2021-12-13 04:35] LABS: Hematocrit 27.7 % (37.0-53.0); Hemoglobin 8.4 g/dL (13.5-17.5)
[2021-12-13 08:17] LABS: BASOPHILS ABSOLUTE AUTO 0.04 K/mm3 (0.00-0.23); BASOPHILS PERCENT AUTO 1 % (0-2); EOSINOPHILS ABSOLUTE AUTO 0.41 K/mm3 (0.00-0.68); EOSINOPHILS PERCENT AUTO 6 % (0-6); Hematocrit 27.4 % (37.0-53.0); Hemoglobin 8.2 g/dL (13.5-17.5); IMMATURE GRAN ABSOLUTE AUTO 0.04 K/mm3 (0.00-0.10); IMMATURE GRAN PERCENT AUTO 1 % (0-1); LYMPHOCYTES ABSOLUTE AUTO 1.47 K/mm3 (0.84-5.20); LYMPHOCYTES PERCENT AUTO 20 % (21-46); MONOCYTES ABSOLUTE AUTO 0.65 K/mm3 (0.16-1.47); MONOCYTES PERCENT AUTO 9 % (4-13); Mean Corpuscular HGB 27.9 pg (26.0-34.0); Mean Corpuscular HGB Conc 29.9 g/dL (31.5-36.5); Mean Corpuscular Volume 93 fL (80-100); Mean Platelet Volume 9.5 fL (9.1-12.4); NEUTROPHILS ABSOLUTE AUTO 4.72 K/mm3 (1.96-9.15); NEUTROPHILS PERCENT AUTO 64 % (41-73); Platelet Count 322 K/mm3 (150-400); RDW Standard Deviation 54.4 fL (35.1-46.3); Red Blood Cell Count 2.94 M/mm3 (4.30-5.90); White Blood Cell Count 7.33 K/mm3 (4.00-11.30)
[2021-12-13 08:44] LABS: Bun/Creatinine Ratio 20.6 (12.0-20.0); Calcium, Blood 7.7 mg/dL (8.5-10.1); Creatinine, Blood 0.92 mg/dL (0.60-1.20); Potassium, Blood 3.4 mmol/L (3.5-5.5)
[2021-12-13 11:33] LABS: Hematocrit 27.7 % (37.0-53.0); Hemoglobin 8.5 g/dL (13.5-17.5)
--- NOTE | 2021-12-13 18:28 | NUR ---
SHIFT SUMMARY S/P GI BLEED, A/O X4, VSS, TOLERATING CLEAR DIET, GENERALIZED WEAKNESS BUT ABLE TO AMBULATE TO THE BATHROOM FOR BM, USES URINAL IN BED INDEPENDENTLY. DENIES PIAN T/O THE SHIFT TODAY, CONSULTED GI ORDERED AND WILL BE NPO AT MIDNIGHT FOR ENDOSCOPY TOMORROW. NO ACUTE EVENTS THIS SHIFT, CALL LIGHT IN REACH, WILL CTM AND REPORT TO ONCOMING NOC RN.
--- NOTE | 2021-12-14 04:33 | NUR ---
SHIFT SUMMARY NO ACUTE CHANGES OVERNIGHT. PT DENIES PAIN T/O SHIFT. SOFT BP BUT ASYMPTOMATIC. TOLERATING CLEAR LIQ DIET. DENIES N/V. DENIES DIZZINESS AND LIGHTHEADEDNESS. PT USE URINAL INDEPENDENTLY. AOX3. VSS. PLAN FOR EDG TODAY. PT NPO AFTER MIDNIGHT. CALL LIGHT WIHTIN REACH. WILL PROVIDE REPORT TO ONCOMING NURSE. PT SLEPT GOOD T/O SHIFT.
[2021-12-14 06:43] LABS: Hematocrit 25.5 % (37.0-53.0)
[2021-12-14 06:57] LABS: Bun/Creatinine Ratio 25.5 (12.0-20.0); Calcium, Blood 7.5 mg/dL (8.5-10.1); Creatinine, Blood 0.86 mg/dL (0.60-1.20); Potassium, Blood 3.4 mmol/L (3.5-5.5)
--- NOTE | 2021-12-14 14:32 | NUR ---
PT BROUGHT TO UNIT VIA GURNERY ON 2L OXYGEN VIA NC. PT REPORTS NO PAIN OR NAUSEA. DENTURES LEFT IN PT'S ROOM.
--- NOTE | 2021-12-14 14:35 | NUR ---
12/14/21 1435 Narayan Louis History, Chart, Medications and Allergies reviewed before start of procedure. MONITOR INTACT WITH CONTINUOUS PULSE OXIMETRY AND INTERMITTENT BP. 3-LEAD EKG REVIEWED WITH PHYSICIAN PRIOR TO START OF PROCEDURE. O2 VIA N/C INTACT THROUGHOUT SEDATION/PROCEDURE VIA POM MASK. HURRICAINE SPRAY TO OROPHARYX. Bite Block Placed.
[2021-12-14 18:27] LABS: Hematocrit 31.5 % (37.0-53.0); Hemoglobin 9.7 g/dL (13.5-17.5)
[2021-12-15 04:43] LABS: Hemoglobin 8.4 g/dL (13.5-17.5)
[2021-12-15 05:02] LABS: Bun/Creatinine Ratio 25.3 (12.0-20.0); Calcium, Blood 7.6 mg/dL (8.5-10.1); Creatinine, Blood 0.83 mg/dL (0.60-1.20); Potassium, Blood 3.6 mmol/L (3.5-5.5)
--- NOTE | 2021-12-15 05:47 | NUR ---
SHIFT SUMMARY A/O X4-BEDREST THROUGHOUT THE SHIFT. UPPER ENDOSCOPY YESTERDAY, NO STOOL THROUGHOUT THE NIGHT. VOIDING WELL AND TOLERATED PO INTAKE, NO N/V REPORTED. NO PAIN REPORTED. REDRESSED SKIN TEARS ON R UPPER ARM. VITAL SIGNS STABLE, REMAINS ON 2L NC. WILL CONTINUE TO MONITOR AND REPORT TO ONCOMING RN. CALL LIGHT IN REACH.
[2021-12-15 07:54] LABS: Percent Saturation 43.1 % (20.0-50.0)
[2021-12-15 14:26] LABS: Hematocrit 29.4 % (37.0-53.0)
--- NOTE | 2021-12-15 18:11 | NUR ---
SUMMARY NO ACUTE CHANGES T/O SHIFT. PT TOLERATING PO INTAKE. TAKES MEDS WITHOUT DIFFICULTY; PILLS IN APPLESAUCE. IRRITABLE AT TIMES. PT DECLINING TO GO TO SNF; WANTS TO GO HOME. [place]. CALL LIGHT IN REACH.
--- NOTE | 2021-12-16 04:05 | NUR ---
SHIFT SUMMARY NO ACUTE CHANGES OVERNIGHT. VSS. PT DENIES PAIN. SLEPT GOOD OVERNIGHT. USE URINAL TO VOID. VOIDING ADEQUATE AMOUNT. USED CALL LIGHT APPROPRIATELY, MAKE NEEDS KNOWN. SALINE LOCKED. IV ON LEFT HAND. TOLERATING PO INTAKE. DENIES NAUSEA AND VOMITING. AOX4. VSS. DENIES CHEST PAIN. PT ON 2L NC, HX LEIGHANN. CALL LIGHT WITHIN REACH. WILL CONTINUE TO MONITOR AND WILL PROVIDE REPORT TO ONCOMING NURSE.
[2021-12-16 05:26] LABS: Hematocrit 26.7 % (37.0-53.0)
[2021-12-16] MEDS ORDERED: FERSU300 PO (11:48)
[2021-12-16] MEDS ORDERED: NYSTATIN100000 U10 MT (11:49)
--- NOTE | 2021-12-16 14:14 | NUR ---
DISCHARGED DC'D IV, CATHETER INTACT. FAXED PRESCRIPTIONS TO [facility]. REVIEWED DC INSTRUCTIONS W/PT AND DAUGHTER; VERBALIZED UNDERSTANDING. LEFT UNIT IN WC ACCOMPANIED BY DAUGHTER, W/POSSESSIONS AND DC PAPERWORK IN HAND. HOME [address]
== END 2021-12-16 14:13 | disposition home or self-care (01) | DRG 378 ==
LOC: ER 13:17 → SURS 21:04 → ICUE 21:04 → ERHOLD 21:04 → ICUE 23:19 → PCU 12-12 03:46 → SURS 12-12 15:30
PROVIDERS: Emergency Medicine; Family Medicine; Internal Medicine; Nurse Practitioner Acute Care; Student in an Organized Health Care Education/Training Program; ADMIT Internal Medicine
PROC: 30233N1 Transfusion of Nonautologous Red Blood Cells into Peripheral Vein, Percutaneous Approach (ICD-10-PCS; principal; 2021-12-06)
PROC: 0DJ08ZZ Inspection of Upper Intestinal Tract, Via Natural or Artificial Opening Endoscopic (ICD-10-PCS; 2021-12-14)
DX: K92.1 Melena (principal); B37.81 Candidal esophagitis; D62 Acute posthemorrhagic anemia; I50.32 Chronic diastolic (congestive) heart failure; Z66 Do not resuscitate; Z51.5 Encounter for palliative care; Z20.822 Contact with and (suspected) exposure to COVID-19; I48.91 Unspecified atrial fibrillation; D72.829 Elevated white blood cell count, unspecified; E87.6 Hypokalemia; I27.20 Pulmonary hypertension, unspecified; G47.33 Obstructive sleep apnea (adult) (pediatric); D50.9 Iron deficiency anemia, unspecified; I11.0 Hypertensive heart disease with heart failure; R29.6 Repeated falls; E66.01 Morbid (severe) obesity due to excess calories; F32.A Depression, unspecified; E78.5 Hyperlipidemia, unspecified; Z68.29 Body mass index [BMI] 29.0-29.9, adult; Z90.49 Acquired absence of other specified parts of digestive tract; Z98.890 Other specified postprocedural states; Z87.891 Personal history of nicotine dependence; Z79.82 Long term (current) use of aspirin; Z79.899 Other long term (current) drug therapy
CPT/HCPCS: 0241U; 36415; 36430; 74174; 80048; 80053; 82272; 82728; 83540; 83550; 84132; 85014; 85018; 85025; 85610; 85730; 86850; 86900; 86901; 86920; 86923; 93005; 93010; 94640; 94664; 94760; 94762; 96361; 96374; 97110; 97116; 97161; 97166; 97530; 97535; 99285-25; A9270; C1751; C9113; J2704; J3480; J7030; J7050; J7120; P9016; Q9967